=== PATIENT | female | born 1965 | race Caucasian/White ===

== ENCOUNTER 2024-09-07 14:15 | Outpatient (OUT) | payer OTHER, SELFPAY ==
--- NOTE | 2024-09-07 14:20 | ECG_ITS ---
[facility] Test Date: 2024-09-07 Pat Name: EMILY BAILEY Department: Room: - Gender: Female Mast Maker: : 1965 Requested By: Rafita Cano Order Number: [id number] Reading MD: HAYLEY GRAHAM M.D. Measurements Intervals [place] Rate: 76 P: 11 IA: 141 QRS: 3 QRSD: 81 T: 12 QT: 378 QTc: 426 Interpretive Statements SINUS RHYTHM Normal ECG No previous ECG available for comparison Electronically Signed On 09-08-2024 6:32:36 EST by HAYLEY GRAHAM M.D.
--- NOTE | 2024-09-07 14:48 | PM.PRESUREVA ---
History of Present Illness History of Present Illness Chief complaint: Left carpal tunnel syndrome Narrative: Patient presents for presurgical testing. Please see HPI from Dr. Cano dated August 30, 2024. Review of Systems ROS Narrative Please see ROS from Dr. Cano dated August 30, 2024. [facility] Medical History (Updated 09/07/24 @ 14:33 by Mary Villavicencio NP) Neck pain ?M54.2 - Cervicalgia (ICD-10) Back pain ?M54.9 - Dorsalgia, unspecified (ICD-10) Arthritis ?M19.90 - Unspecified osteoarthritis, unspecified site (ICD-10) Low iron ?E61.1 - Iron deficiency (ICD-10) Fatty liver ?K76.0 - Fatty (change of) liver, not elsewhere classified (ICD-10) GERD (gastroesophageal reflux disease) ?K21.9 - Gastro-esophageal reflux disease without esophagitis (ICD-10) Extremity edema ?R60.0 - Localized edema (ICD-10) History of blood transfusion ?Z92.89 - Personal history of other medical treatment (ICD-10) Hypertension ?I10 - Essential (primary) hypertension (ICD-10) Left carpal tunnel syndrome ?G56.02 - Carpal tunnel syndrome, left upper limb (ICD-10) Surgical History (Updated 09/07/24 @ 14:33 by Mary Villavicencio NP) History of colonoscopy ?Z98.890 - Other specified postprocedural states (ICD-10) History of hernia repair ?Z98.890 - Other specified postprocedural states (ICD-10) ?Z87.19 - Personal history of other diseases of the digestive system (ICD-10) History of section ?Z98.891 - History of uterine scar from previous surgery (ICD-10) History of hysterectomy ?Z90.710 - Acquired absence of both cervix and uterus (ICD-10) Family History (Updated 09/07/24 @ 14:33 by Mary Villavicencio NP) Other Family history of aneurysm Family history of breast cancer Family history of cervical cancer Family history of hypertension Family history of myocardial infarction Family history of seizures Family history of stroke Social History (Updated 09/07/24 @ 14:29 by Mary Villavicencio NP) Within the past year, how often did you have a drink containing alcohol: 2-4 times a month Smoking status: Never smoker Non-prescribed substance use: cannabis (any form) Previous occupational history: [employer] Highest level of school completed/degree received: high school graduate Meds Home Medications and Allergies Home Medications ?Medication ?Instructions ?Recorded ?Confirmed ?Type ascorbic acid (vitamin C) 1,000 mg 1 g PO DAILY 09/07/24 09/07/24 History capsule biotin 1 mg capsule 1 mg PO DAILY 09/07/24 09/07/24 History calcium 100 mg capsule 100 mg PO DAILY 09/07/24 09/07/24 History docusate sodium 50 mg capsule 50 mg PO DAILY 09/07/24 09/07/24 History (Stool Softener) lactobacillus combination no.4 3 3,000 mmu cells PO DAILY 09/07/24 09/07/24 History billion cell capsule (Probiotic) lansoprazole 15 mg capsule,delayed 15 mg PO Q12H 09/07/24 09/07/24 History release losartan 50 mg tablet 50 mg PO DAILY 09/07/24 09/07/24 History magnesium 200 mg tablet 200 mg PO DAILY 09/07/24 09/07/24 History multivitamin (Daily Multi-Vitamin 1 tab PO DAILY 09/07/24 09/07/24 History tablet) Allergies Allergy/AdvReac Type Severity Reaction Status Date / Time No Known Drug Allergies Allergy Verified 09/07/24 14:27 Exam Narrative Exam Narrative: Constitutional: Awake, alert, comfortable, well-appearing, nontoxic, interactive, vital signs as charted Head: Normocephalic, atraumatic Neck: Supple, normal appearance, normal range of motion, no meningeal signs, no lymphadenopathy Respiratory: No respiratory distress, breath sounds clear Cardiovascular: Regular rate and rhythm, strong and regular heart tones Skin: No rashes or induration, no lesions, only visible skin inspected Neuro: No neurological deficits, normal sensation Psychiatric: Oriented ?3, normal affect Assessment and Plan Assessment and Plan (1) Left carpal tunnel syndrome: Plan Left endoscopic carpal tunnel release scheduled with Dr. Cano September 26, 2024.
[2024-09-07 15:01] LABS: Basophils Percent Auto 0.5 % (0.2-2.0); Eosinophils Absolute Auto 0.2 10^3/uL (0.0-0.7); Eosinophils Percent Auto 1.8 % (0.9-7.0); Hematocrit 37.4 % (36.0-48.0); Hemoglobin 12.3 g/dL (12.0-16.0); Immature Granulocytes Abs Auto 0.02 10^3/uL (0.00-0.03); Immature Granulocytes Pct Auto 0.2 % (0.0-0.5); Lymphocytes Absolute Auto 3.1 10^3/uL (1.2-3.8); Lymphocytes Percent Auto 38.2 % (20.5-60.0); Mean Corpuscular HGB Conc 32.9 g/dL (29.9-35.2); Mean Corpuscular Hemoglobin 29.6 pg (26.7-34.0); Mean Corpuscular Volume 89.9 fL (81.0-99.0); Monocytes Absolute Auto 0.5 10^3/uL (0.3-0.8); Monocytes Percent Auto 6.5 % (1.7-12.0); Neutrophils Absolute Auto 4.3 10^3/uL (1.4-6.5); Neutrophils Percent Auto 52.8 % (43.0-75.0); Platelet Count 270 10^3/uL (150-450); Red Blood Count 4.16 10^6/uL (4.20-5.40); Red Cell Distribution Width 13.5 % (11.0-15.0); White Blood Count 8.2 10^3/uL (4.0-11.0)
[2024-09-07 15:12] LABS: Anion Gap 11.7; BUN Creatinine Ratio 20.4; Calcium 9.3 mg/dL (8.5-10.1); Carbon Dioxide 27.4 mmol/L (21.0-32.0); Chloride 106 mmol/L (98-107); Estimated GFR (African America >60 (>=60 mL/min/1.73m^2); Estimated GFR (Non-African Ame 58 (>=60 mL/min/1.73m^2); Glucose 94 mg/dL (74-106); Potassium 4.1 mmol/L (3.5-5.1); Sodium 141 mmol/L (136-145)
== END 2024-09-07 14:16 | disposition home or self-care (01) ==
PROVIDERS: PCP Nurse Practitioner Women's Health; Visit Provider Orthopaedic Surgery
DX: Z01.810 Encounter for preprocedural cardiovascular examination (principal); Z01.812 Encounter for preprocedural laboratory examination; Z01.818 Encounter for other preprocedural examination; G56.02 Carpal tunnel syndrome, left upper limb
CPT/HCPCS: 80048; 85025; 93005; G0463

== ENCOUNTER 2024-10-03 12:23 | Day surgery (SDC) | payer OTHER, SELFPAY ==
[2024-09-07 14:42] VITALS: BP 136/91; PULSE 78; TEMP 36.2; O2SAT 96; BMI 40.2
[2024-10-03 12:25] VITALS: BP 153/82; PULSE 74; TEMP 36.4; O2SAT 97; BMI 39.0
--- OUTSIDE RECORDS SUMMARY | 2024-10-03 12:48 | XMS_ITS | CCD ---
Author Organization [facility] ion Partnership [facility] Care Team Providers Care Perforator Operator Oil Well Name Role Phone Guy Lorenzana Primary Care Provider [phone] KEVIN ARITA Admitting Unavailable KEVIN ARITA Attending Unavailable GUY LORENZANA Primary Care Unavailable SUZETTE MOSELEY V Consulting Unavailable KEVIN ARITA Consulting Unavailable Guy Lorenzana Primary Care Provider Anamika BARNES, Guy Salazar Primary Care Provider Anamika BARNES, Guy Salazar Primary Care Provider Anamika BARNES, Guy Salazar Primary Care Provider Brii Mendoza MD Unavailable Unallocated , Noms Provider Primary Care Provi madison CRISTINO LABOY Attending Unavailable BRII MENDOZA Referring Unavailable Reji MANAGER INSTRUMENTATION - MULTIPLE EFFECT EVAPORATOR OPERATORBiri Primary Care Provide r BRII MENDOZA Referring Unavailable BRII MENDOZA Primary Care Unavailable BRII MENDOZA Primary Care Unavailable BRII MENDOZA M Referring Unavailable BRII MENDOZA Primary Care Unavailable BRII MENDOZA Referring Unavailable BRII MENDOZA Primary Care Unavailable LINH HERNADEZ Referring Unavailable BRII MENDOZA Referring Unavailable BRII MENDOZA M Primary Care Unavailable BRII MENDOZA M Referring Unavailable BRII MENDOZA M Primary Care Unavailable BRII MENDOZA M Primary Care Unavailable Mendoza MANAGER INSTRUMENTATION - MULTIPLE EFFECT EVAPORATOR OPERATORBrii Primary Care Provide r Medications Current Medications Medication Drug Class(es) Dates Sig (Normalized) Sig (Original) acetaminophen 325 mg oral tablet (5 sources) Start: 12-14-2019 End: 12-14-2019 take 650 mg by mouth every four hours as needed for pain, then take 4000 mg by mouth every twenty-four hours as needed for pain 650 mg, Oral, EVERY 4 HOURS PRN, Pain Mild (1-3), Fever, Fever >100.5 F (38 C), Starting 12/14/19 at 1235 Maximum dose of acetaminophen is 4000 mg from all sources in 24 hours. Post-op take 2 tablets by mo uth every six hours as needed acetaminophen (TYLENOL) 500 MG tablet Ta ke 500 mg by mouth every 6 hours as needed for Pain Taking 2 0 Active acetaminophen 325 mg / oxyCODONE hydrochloride 5 mg oral tablet (2 sources) Opioid Agonist Start: 12-16-2019 End: 12-23-2019 take 1 tablet by mouth every four hours as needed for pain oxyCODONE-acetaminophen (PERCOCET) 5-325 MG per tablet Indications: S/P SHUN (total abdominal hysterectomy) Take 1 tablet by mouth every 4 hours as needed for Pain (postop) for up to 7 days. 28 tablet 0 12/16/2019 12/23/2019 Active Start: 12-14-2019 oxyCODONE-acet aminophen (PERCOCET) 5-325 MG per tablet 1 tablet [id number] 200 actuat albuterol 0.09 mg/actuat metered dose inhaler (1 source) beta2-Adrenergic Agonist Start: 10-31-2021 take 2 puff(s) by inhalation four times daily as needed for wheezing albuterol sulfate HFA (VENTOLIN HFA) 108 (90 Base) MCG/ACT inhaler Indications: Bronchitis Inhale 2 puffs into the lungs 4 times daily as needed for Wheezing 18 g 0 10/31/2021 Active benzocaine 15 mg / menthol 3.6 mg oral lozenge (1 source) Standardized Chemical Allergen Start: 12-15-2019 benzocaine-menthol (CEPACOL SORE THROAT) lozenge 1 lozenge benzonatate 100 mg oral capsule (1 source) Non-narcotic Antitussive Start: 07-22-2021 End: 07-29-2021 take 1 capsule by mouth three times daily as needed for cough benzonatate (TESSALON) 100 MG capsule Indications: Post-COVID chronic cough Take 1 capsule by mouth 3 times daily as needed for Cough 21 capsule 0 07/22/2021 07/29/2021 Active Biotin (1 source) BIOTIN PO Take b y mouth Active 24 hr buPROPion hydrochloride 150 mg extended release oral tablet (1 source) Aminoketone Start: 04-09-2022 take 1 tablet by mouth once daily in the morning buPROPion (WELLBUTRIN XL) 150 MG extended release tablet Take 1 tablet by mouth every morning 30 tablet 0 04/09/2022 Active cyclobenzaprine hydrochloride 10 mg oral tablet (3 sources) Muscle Relaxant take 1 tablet by mouth three times daily as needed for muscle spasms cyclobenzaprine (FLEXERIL) 10 MG tablet Take 10 mg by mouth 3 times daily as needed for Muscle spasms 0 Active Docusate (1 source) Docusate Calcium (STOOL SOFTENER PO) Take by mouth Active 0.4 ml enoxaparin sodium 100 mg/ml prefilled syringe (1 source) Low Molecular Weight Heparin Start: 12-15-2019 inject 40 mg by subcutaneous injection once daily 40 mg, Subcutaneous, DAILY, First dose on Noemi 12/15/19 at 0800 Pharmacy to dose if renal insufficiency present. Post-op escitalopram 10 mg oral tablet (1 source) Serotonin Reuptake Inhibitor Start: 03-18-2022 take 1 tablet by mouth once daily escitalopram (LEXAPRO) 10 MG tablet Take 1 tablet by mouth daily 30 tablet 1 03/18/2022 Active estradiol 1 mg oral tablet (7 sources) Estrogen Start: 07-30-2020 take 1 tablet by mouth once daily estradiol (ESTRACE) 1 MG tablet Indications: Mood swing Take 1 tablet by mouth daily 21 tablet 3 07/30/2020 Active ibuprofen 200 mg oral tablet (8 sources) Nonsteroidal Anti-inflammatory Drug take 1 tablet by mouth every six hours as needed for pain ibuprofen (ADVIL;MOTRIN) 200 MG tablet Take 200 mg by mouth every 6 hours as needed for Pain 0 Active lansoprazole 15 mg delayed release oral capsule (20 sources) Proton Pump Inhibitor Start: 02-01-2020 take 1 capsule by mouth once daily lansoprazole (PREVACID) 15 MG delayed release capsule Take 1 capsule by mouth daily 90 capsule 3 02/01/2020 Active Start: 01-22-2016 take 1 capsule by mo [facility] once daily lansoprazole (PREVACID) 15 MG capsule Take 1 capsule by mouth daily 30 capsule 3 01/22/2016 Suspended lisinopril 10 mg oral tablet (20 sources) Angiotensin Converting Enzyme Inhibitor Start: 03-18-2022 take 1 tablet by mouth once daily lisinopril (PRINIVIL;ZESTRIL) 10 MG tablet Take 1 tablet by mouth daily 90 tablet 1 03/18/2022 Active Start: 09-25-2020 take 1 tablet by alejandro once daily lisinopril (PRINIVIL;ZESTRIL) 10 MG tablet Take 1 tablet by mouth daily 90 tablet 3 09/25/2020 Active Start: 02-01-2020 take 1 tablet by alejandro once daily lisinopril (PRINIVIL;ZESTRIL) 10 MG tablet Take 1 tablet by mouth daily 90 tablet 3 02/01/2020 Active Start: 09-02-2019 take 10 mg by mouth once daily 10 mg, Oral, DAILY, First dose on Thu12/14/19 at 1300 Start: 08-10-2018 take 1 tablet by alejandro once daily lisinopril (PRINIVIL;ZESTRIL) 10 MG tablet Indications: Essential hypertension Take 1 tablet by mouth daily 90 tablet 3 08/10/2018 Active losartan potassium 50 mg oral tablet (3 sources) Angiotensin 2 Receptor Abdulkadir Start: 02-09-2024 take 1 tablet by mouth once daily losartan (COZAAR) 50 MG tablet Take 1 tablet by mouth daily 90 tablet 3 02/09/2024 Active Magnesium (1 source) MAGNESIUM PO Michael e by mouth Active meloxicam 15 mg oral tablet (1 source) Nonsteroidal Anti-inflammatory Drug Start: 04-05-2024 take 1 tablet by mouth once daily as needed for pain meloxicam (MOBIC) 15 MG tablet Take 1 tablet by mouth daily as needed for Pain . Take with food. 30 tablet 1 04/05/2024 Active Multiple Vitamin (MULTIVITAMIN ADULT PO) (1 source) Multiple Vitamin (MULTIVITAMIN ADULT PO) Take by mouth Active [place]-3 Fatty Acids (FISH OIL PO) (1 source) [place]-3 Fatty Acids (FISH OIL PO) Take by mouth Active 2 ml ondansetron 2 mg/ml injection (1 source) Serotonin-3 Receptor Antagonist Start: 12-14-2019 4 mg, Intravenous, EVERY 8 HOURS PRN, Nausea, Vomiting, Starting Thu12/14/19 at 1235 If uncontrolled after 2 doses, notify physician. Post-op pantoprazole 20 mg delayed release oral tablet (1 source) Proton Pump Inhibitor Start: 12-15-2019 take 20 mg by mouth once daily before breakfast 20 mg, Oral, DAILY BEFORE BREAKFAST, First dose on Thu12/15/19 at 0700 Do not crush or break. Substituted for Lansoprazole (PREVACID). Probiotic Product (PROBIOTIC PO) (1 source) Probiotic Produc t (PROBIOTIC PO) Take by mouth Active Turmeric extract (6 sources) TURMERIC PO Take by mouth daily 0 Active VITAMIN D PO (1 source) VITAMIN D PO Michael e by mouth Active Completed/Discontinued Medications Medication Drug Class(es) Dates Sig (Normalized) Sig (Original) calcium chloride 0.0014 meq/ml / potassium chloride 0.004 meq/ml / sodium chloride 0.103 meq/ml / sodium lactate 0.028 meq/ml injectable solution (2 sources) Start: 12-14-2019 End: 12-15-2019 Intravenous, at 125 mL/hr, CONTINUOUS, Starting Thu12/14/19 at 1300, Post-op Start: 12-14-2019 End: 12-14-2019 lactated ringers infusion ceFAZolin (ANCEF) 2 g in dextrose 5 % 100 mL IVPB (2 sources) Start: 12-14-2019 End: 12-15-2019 2 g, Intravenous, EVERY 8 HO URS, 2 doses, First dose on Thu12/14/19 at 1600, Last dose on Thu12/15/19 at 0000, Post-op Start: 12-14-2019 End: 12-14-2019 ceFAZolin (ANCEF) 2 g in dex trose 5 % 100 mL IVPB dimenhyDRINATE 50 mg oral tablet (1 source) Start: 12-14-2019 End: 12-14-2019 dimenhyDRINATE (DRAMAMINE) tablet 50 mg gabapentin 300 mg oral capsule (1 source) Anti-epilepti c Agent Start: 12-14-2019 End: 12-14-2019 gabapentin (NEURONTIN) capsule 600 mg 30 ml morphine sulfate 1 mg/ml injection (1 source) Opioid Agonist Start: 12-14-2019 End: 12-15-2019 take 4-7.5 mg intravenous route every hour Intravenous, CONTINUOUS, Starting Thu12/14/19 at 1215 LOADING DOSE: 3m g (Optional-Prior to GRAPHIC USER INTERFACE DESIGNER, Standard 2-4mg) BASAL DOSE: 0mg/hr (Standard 0-2mg/hr) GRAPHIC USER INTERFACE DESIGNER DOSE: 1mg (Standard 0.5-1.5mg) LOC KOUT: 10min (Standard 10 min) 1 hour dose limit: 6mg (Standard 4-7.5mg) 50 ml sodium chloride 9 mg/ml injection (3 sources) Start: 12-16-2019 End: 12-16-2019 0.9 % sodium chloride bolus Start: 12-14-2019 10 mL, Intrave nous, EVERY 12 HOURS SCHEDULED (2 times per day), First dose on Thu12/14/19 at 2100, Post-op Start: 12-14-2019 take 10 mL intravenous route o nce 10 mL, Intravenous, PRN, Line Care, Starting Thu12/14/19 at 1235 After every IV line use Post-op Problems Active Problems Problem Classification Problem Date Documented Da te Episodic/Chronic Essential hypertension (20 sources) Essential hypertension; Translations: [Essential (primary) hypertension] Onset: 03-06-2015 03-06-2015 Chronic External cause codes: Struck by; against (1 source) Other cause of strike by thrown, projected or falling object, initial encounter; Translations: [OTH CAUSE STRIK THRWN/FALL OBJ INIT] Onset: 05-18-2019 Osteoarthritis (3 sources) Osteoarthritis; Translations: [Unspecified osteoarthritis, unspecified site] Onset: 07-06-2007 02-09-2024 Chronic Other connective tissue disease (1 source) Pain in lower limb; Translations: [Acute pain of right lower extremity] Episodic Other gastrointestinal disorders (2 sources) Disorder of abdomen; Translations: [Abdominal adhesions] 12-14-2019 Episodic Other injuries and conditions due to external causes (3 sources) Unspecified injury of head, initial encounter; Translations: [UNSPECIFIED INJURY HEAD INITIAL ENC] Onset: 05-16-2019 Other injuries and conditions due to external causes (1 source) Other specified injuries of head, initial encounter; Translations: [OTH SPEC INJURIES HEAD INITIAL ENC] Onset: 05-18-2019 Other liver diseases (2 sources) Steatosis of liver; Translations: [Fatty (change of) liver, not elsewhere classified] Onset: 02-29-2024 02-29-2024 Chronic Other nervous system disorders (2 sources) Carpal tunnel syndrome of left wrist; Translations: [Carpal tunnel syndrome, left upper limb] 06-27-2024 Chronic Other nervous system disorders (2 sources) Numbness and tingling sensation of skin; Translations: [Anesthesia of skin] 06-27-2024 Episodic Other non-traumatic joint disorders (2 sources) Scapulalgia; Translations: [Shoulder blade pain] Episodic Other nutritional; endocrine; and metabolic disorders (1 source) Obesity; Translations: [Class 2 obesity with body mass index (BMI) of 38.0 to 38.9 in adult] Onset: 05-23-2024 05-23-2024 Chronic Other nutritional; endocrine; and metabolic disorders (1 source) Weight gain; Translations: [Weight gain] Episodic Superficial injury; contusion (1 source) Contusion of other part of head, initial encounter; Translations: [CONTUS OTH PRT HEAD INITIAL ENCNTR] Onset: 05-18-2019 Episodic Past or Other Problems Problem Classification Problem Date Documented Date Episodic/Chronic Abdominal pain (3 sources) Right upper quadrant pain; Translations: [Epigastric rebound abdominal tenderness] Onset: 02-09-2024 Episodic Cancer of cervix (12 sources) Cervical intraepithelial neoplasia grade III with severe dysplasia; Translations: [Carcinoma in situ of cervix, unspecified] Resolved: 01-29-2021 12-14-2019 Episodic Deficiency and other anemia (7 sources) Anemia; Translations: [Severe anemia] Onset: 12-16-2019 12-16-2019 Episodic Diabetes mellitus without complication (3 sources) Prediabetes; Translations: [Prediabetes] Onset: 02-10-2024 02-10-2024 Episodic Other connective tissue disease (3 sources) Triggering of digit; Translations: [Trigger finger, left middle finger] Onset: 02-18-2023 02-18-2023 Episodic Other female genital disorders (1 source) Cervical atypism Episodic Other nervous system disorders (3 sources) Anesthesia of skin; Translations: [Anesthesia of skin] Onset: 02-09-2024 Episodic Other nervous system disorders (1 source) Numbness of hand; Translations: [Anesthesia of skin] 02-09-2024 Episodic Other screening for suspected conditions (not mental disorders or infectious disease) (11 sources) Patient encounter status; Translations: [Encounter for screening for malignant neoplasm of colon] Onset: 01-22-2017 Resolved: 10-15-2017 10-15-2017 Episodic Residual codes; unclassified (20 sources) Feeling nervous; Translations: [Nervousness] Onset: 03-06-2015 Resolved: 08-02-2018 08-02-2018 Episodic Residual codes; unclassified (7 sources) History of total hysterectomy; Translations: [S/P SHUN (total abdominal hysterectomy)] Onset: 12-14-2019 12-14-2019 Episodic Residual codes; unclassified (1 source) Family history of other endocrine, nutritional and metabolic diseases; Translations: [Family history of other endocrine, nutritional and metabolic diseases] Onset: 02-09-2024 Episodic Spondylosis; intervertebral disc disorders; other back problems (20 sources) Low back pain; Translations: [Bilateral low back pain without sciatica] Onset: 03-06-2015 Resolved: 08-02-2018 08-02-2018 Episodic Unclassified (20 sources) Patient encounter status; Translations: [Colon cancer screening] Onset: 01-22-2017 Resolved: 10-15-2017 10-15-2017 Viral infection (20 sources) Herpes zoster without complication; Translations: [Zoster without complications] Onset: 07-11-2015 Resolved: 08-02-2018 08-02-2018 Episodic Results Test Name Value Interpretation Reference Range Facility Cytology Reporton 07-13-2024 Cytology report Cyto stain.thin prep Doc (Cvx/Vag) (NOTE) Path Number: [id number] DIAGNOSIS Imaged ThinPrep Pap - Vaginal (1 monolayer slide): Specimen Adequacy: Satisfactory for evaluation. Descriptive Diagnosis: Negative for intraepithelial lesion or malignancy. Cytotech Screener: EY Electronically Signed Out Arnold CAMPUZANO(ASCP) ey/07/22/2024 Source of Specimen: A: Imaged ThinPrep Pap - Vaginal (1 monolayer slide) HPV Reflex?............. .........HPV if ASCUS Clinical History Total hysterectomy: 12/14/2019 Z01.419 Routine mechanical unit repairer exam without abnormal findings LMP: 11/16/2019 Processing Lab: [address] [place] [address] Interpretation performed at [address] [id number] This Pap Test has been evaluated with the assistance of the EndoSpherePrep Pap Test Imaging System. The Pap smear is a screening test primarily for squamous epithelial lesions, which is subject to both false negative and false positive results. Your patient should be reminded to consult you immediately if she experiences any suspicious signs or symptoms, regardless of her Pap smear result. GYNECOLOGIC CYTOLOGY REPORT Patient Name: EMILY PEREZ [facility] Rec: [id number] [facility] [place] [facility] ANATOMIC PATHOLOGY [address] [facility]. [place], [place] [address] Normal [facility] EMG 1 Extremeityon 4 EMG/NCS LUE Moderate sensory only = mild [facility] N[facility] 7-8 Nerveson 06-27-2024 EMG/NCS LUE Moderate sensory only = mild left CTS [facility] DBT Breast - bilateral scree ningon 03-24-2024 No evidence of malignancy. Advise annual screening mammography. Breast tissue can be either dense or not dense. Dense tissue makes it harder to find breast cancer on a mammogram and also raises the risk of developing breast cancer. Your breast tissue is NOT DENSE. Talk to your health care provider about breast density, risk for breast cancer and your individual situation. BI-RADS 1 BIRADS: BIRADS - CATEGORY 1 Negative, no evidence of malignancy. Normal interval follow-up is recommended in 12 months. OVERALL ASSESSMENT - NEGATIVE A letter of notification will be sent to the patient regarding the results. [employer] recommends annual mammograms for women 40 years and older. Performing Facility: [place] [address] [facility] RIS CONSOLIDATED EXAMINATION: SCREENING DIGITAL BILATERAL MAMMOGRAM WITH TOMOSYNTHESIS, 03/23/2024 TECHNIQUE: Screening mammography was performed with tomosynthesis including MLO and CC views of the bilateral breasts. Computer aided detection was used for the interpretation of this exam. COMPARISON: 14 April 2022; 22 August 2019 HISTORY: Screening. Positive family history of breast cancer; paternal aunt at 72 paternal grandmother age 75. No hormonal replacement therapy or breast interventions. TC score 10.61 FINDINGS: Both breasts are composed of predominantly fatty tissue. No skin thickening, nipple contour changes, suspicious calcifications, suspicious masses, areas of architectural distortion or significant interval changes are noted. PN RIS CONSOLIDATED DBT Breast - bilateral scree ningOrdered By: Brianna Ace on 03-24-2024 [facility] Work Phone: [facility] ZULE[facility] DIGITAL SCREEN BILA JOHNYALoapril 03-24-2024 [facility] DIGITAL SCREEN BILATERAL EXAMINATION: SCREENING DIGITAL BILATERAL MAMMOGRAM WITH TOMOSYNTHESIS, 03/23/2024 TECHNIQUE: Screening mammography was performed with tomosynthesis including MLO and CC views of the bilateral breasts. Computer aided detection was used for the interpretation of this exam. COMPARISON: 14 April 2022; 22 August 2019 HISTORY: Screening. Positive family history of breast cancer; paternal aunt at 72 paternal grandmother age 75. No hormonal replacement therapy or breast interventions. TC score 10.61 FINDINGS: Both breasts are composed of predominantly fatty tissue. No skin thickening, nipple contour changes, suspicious calcifications, suspicious masses, areas of architectural distortion or significant interval changes are noted. IMPRESSION: No evidence of malignancy. Advise annual screening mammography. Breast tissue can be either dense or not dense. Dense tissue makes it harder to find breast cancer on a mammogram and also raises the risk of developing breast cancer. Your breast tissue is NOT DENSE. Talk to your health care provider about breast density, risk for breast cancer and your individual situation. BI-RADS 1 BIRADS: BIRADS - CATEGORY 1 Negative, no evidence of malignancy. Normal interval follow-up is recommended in 12 months. OVERALL ASSESSMENT - NEGATIVE A letter of notification will be sent to the patient regarding the results. The [employer] recommends annual mammograms for women 40 years and older. Performing Facility: [place] [address] Interpreted by: Brianna Ace MD Signed by: Brianna Ace MD 03/24/24 Final result Normal [facility] DBT Breast - bilateral scree tiagon 03-23-2024 Radiology Study observation (narrative) [facility] US GALLBLADDER RUQon 024 US GALLBLADDER RUQ EXAMINATION: RIGHT UPPER QUADRANT ULTRASOUND 02/29/2024 3:46 pm COMPARISON: None. HISTORY: ORDERING SYSTEM PROVIDED HISTORY: RUQ pain TECHNOLOGIST PROVIDED HISTORY: FINDINGS: LIVER: Hepatic steatosis. No focal lesion. Liver 17.6 cm in length. BILIARY SYSTEM: Gallbladder is unremarkable without evidence of pericholecystic fluid, wall thickening or stones. Negative sonographic Aguirre's sign. Common bile duct is within normal limits measuring 5.1 mm. RIGHT KIDNEY: The right kidney is grossly unremarkable without evidence of hydronephrosis. PANCREAS: Visualized portions of the pancreas are unremarkable. OTHER: No evidence of right upper quadrant ascites. IMPRESSION: Hepatic steatosis Interpreted by: Matt Peterson DO Signed by: Matt Peterson DO 02/29/24 Final result Normal [facility] XR CERVICAL SPINE (2-3 VIEWS )on 02-13-2024 XR CERVICAL SPINE (2-3 VIEWS) EXAMINATION: 4 XRAY VIEWS OF THE CERVICAL SPINE 02/09/2024 3:12 pm COMPARISON: None. HISTORY: ORDERING SYSTEM PROVIDED HISTORY: Neck pain FINDINGS: 1 mm anterolisthesis C3 on C4, 2 mm anterolisthesis C4 on C5 and 1 mm retrolisthesis C5 on C6. May no acute osseous abnormality. The odontoid is intact as visualized. Advanced degenerative change most significant C5-6 with loss of disc height and endplate spondylosis. Prevertebral soft tissues are unremarkable. IMPRESSION: No acute findings. Multilevel degenerative change. Interpreted by: Matt Peterson DO Signed by: Matt Peterson DO 02/13/24 Final result Normal [facility] Lipid Profileon 02-10-2024 Cholesterol [Mass/Vol] 172 mg/dL Normal 0-199 [facility] Comment on above: Result Comment: Cholesterol Guidelines: <200 Desirable 200-240 Borderline >240 Undesirable Performed By: #### L IPR #### [facility] [address] [place], [place] [id number] Card Puncher: Aaron Moore MD Cholesterol in HDL [Mass/Vol] 55 mg/dL Normal >40 [facility] Comment on above: Result Comment: HDL Guidelines: <40 Undesirable 40-59 Borderline >59 Desirable Performed By: #### L IPR #### [facility] [address] [place] [address] Card Puncher: Aaron Moore MD Cholesterol in LDL [Mass/Vol] 89 mg/dL Normal 0-100 [facility] Comment on above: Result Comment: LDL Guidelines: <100 Desirable 100-129 Near to/above Desirable 130-159 Borderline >159 Undesirable Direct (measured) LDL and calculated LDL are not interchangeable tests. Performed By: #### L IPR #### [address] [address] Card Puncher: Aaron Moore MD Cholesterol in VLDL [Mass/Vol] 28 mg/dL Normal [facility] Comment on above: Performed By: #### L IPR #### [address] [address] Card Puncher: Aaron Moore MD Cholesterol.total/Cho lesterol in HDL [Mass ratio] 3.0 {ratio} Normal [facility] Comment on above: Performed By: #### L IPR #### [address] [address] Card Puncher: Aaron Moore MD Triglyceride [Mass/Vol] 139 mg/dL Normal <150 [facility] Comment on above: Result Comment: Triglyceride Guidelines: <150 Desirable 150-199 Borderline 200-499 High >499 Very high Based on AHA Guidelines for fasting triglyceride, April 2012. Performed By: #### L IPR #### [address] [address] Card Puncher: Aaron Moore MD Vitamin D 25 OHon 02-10-2024 Vitamin D 25 [place] 40.2 ng/mL Normal 30.0-100.0 [facility] Comment on above: Result Comment: Reference Range: Vitamin D status Range Deficiency <20 ng/mL Mild Deficiency 20-30 ng/mL Sufficiency 30-100 ng/mL Toxicity >100 ng/mL Performed By: #### L IP, ALT, CBC, BMP, AST ####[facility] [place] [address] Lab Director: Suzette Pitt MD#### VD25, GLYHGB ####[facility] [place], [place] [id number] Lab Director: MD Letty Bolanos 02-09-2024 ALT [Catalytic activity/Vol] 19 U/L Normal 5-33 [facility] Comment on above: Performed By: #### L IP, ALT, CBC, BMP, AST #### [address] [place], [place] [id number] Card Puncher: Suzette Pitt MD #### VD25, GLYHGB #### [place] [id number] [place], [place] [id number] Card Puncher: Aaron Moore MD Lalitha 1 AST [Catalytic activity/Vol] 22 U/L Normal <32 [facility] Comment on above: Performed By: #### L IP, ALT, CBC, BMP, AST #### [address] [place] [address] Card Puncher: Suzette Pitt MD #### VD25, GLYHGB #### [address] [id number] Card Puncher: Aaron Moore MD Basic Metabolic Profon 02-08 Anion gap [Moles/Vol] 9 mmol/L Normal 9-17 [facility] Comment on above: Performed By: #### L IP, ALT, CBC, BMP, AST #### [address] [place] [address] Card Puncher: Suzette Pitt MD #### VD25, GLYHGB #### [address] [id number] Card Puncher: Aaron Moore MD BUN/CRE Ratio 30 High 9-20 [facility] Comment on above: Performed By: #### L IP, ALT, CBC, BMP, AST #### [facility] [address] [place] [address] [place] [address] Card Puncher: Suzette Pitt MD #### VD25, GLYHGB #### [address] [id number] Card Puncher: Aaron Moore MD Calcium [Mass/Vol] 9.9 mg/dL Normal 8.6-10.4 [facility] Comment on above: Performed By: #### L IP, ALT, CBC, BMP, AST #### [facility] [address] [place] [address] Card Puncher: Suzette Pitt MD #### VD25, GLYHGB #### [address] [id number] Card Puncher: Aaron Moore MD Chloride [Moles/Vol] 102 mmol/L Normal 98-107 [facility] Comment on above: Performed By: #### L IP, ALT, CBC, BMP, AST #### [address] [place] [address] Card Puncher: Suzette Pitt MD #### VD25, GLYHGB #### [address] [id number] Card Puncher: Aaron Moore MD CO2 [Moles/Vol] 27 mmol/L Normal 20-31 [facility] Comment on above: Performed By: #### L IP, ALT, CBC, BMP, AST #### [facility] [address] [place] [address] Card Puncher: Suzette Pitt MD #### VD25, GLYHGB #### [address] [id number] Card Puncher: Aaron Moore MD Creatinine [Mass/Vol] 0.8 mg/dL Normal 0.5-0.9 [facility] Comment on above: Performed By: #### L IP, ALT, CBC, BMP, AST #### [facility] [address] [place], [place] [phone] Card Puncher: Suzette Pitt MD #### VD25, GLYHGB #### [place] [address] [place], [place] [id number] Card Puncher: Aaron Moore MD GFR/1.73 sq M.predicted among non-blacks MDRD (S/P/Bld) [Vol rate/Area] 86 mL/min/{1.73_m2} Normal >60 [facility] Comment on above: Result Comment: These results are not intended for use in patients <18 years of age. eGFR results are calculated without a race factor using the 2020 CKD-EPI equation. Careful clinical correlation is recommended, particularly when comparing to results calculated using previous equations. The CKD-EPI equation is less accurate in patients with extremes of muscle mass, extra-renal metabolism of creatine, excessive creatine ingestion, or following therapy that affects renal tubular secretion. Performed By: #### L IP, ALT, CBC, BMP, AST #### [facility] [address] [place] [address] [place] [phone] Card Puncher: Suzette Pitt MD #### VD25, GLYHGB #### [address] [id number] Card Puncher: Aaron Moore MD Glucose [Mass/Vol] 92 mg/dL Normal 70-99 [facility] Comment on above: Performed By: #### L IP, ALT, CBC, BMP, AST #### [facility] [address] [place] [address] [place] [address] Card Puncher: Suzette Pitt MD #### VD25, GLYHGB #### [address] [id number] Card Puncher: Aaron Moore MD Potassium [Moles/Vol] 4.1 mmol/L Normal 3.7-5.3 [facility] Comment on above: Performed By: #### L IP, ALT, CBC, BMP, AST #### [facility] [address] [place] [address] Card Puncher: Suzette Pitt MD #### VD25, GLYHGB #### [address] [place], [place] [id number] Card Puncher: Aaron Moore MD Sodium [Moles/Vol] 138 mmol/L Normal 135-144 [facility] Comment on above: Performed By: #### L IP, ALT, CBC, BMP, AST #### [facility] [address] [place] [address] Card Puncher: Suzette Pitt MD #### VD25, GLYHGB #### [address] [place], [place] [id number] Card Puncher: Aaron Moore MD Urea nitrogen [Mass/Vol] 24 mg/dL High 6-20 [facility] Comment on above: Performed By: #### L IP, ALT, CBC, BMP, AST #### [facility] [address] [place] [address] Card Puncher: Suzette Pitt MD #### VD25, GLYHGB #### [address] [id number] Card Puncher: Aaron Moore MD CBCon 02-09-2024 Erythrocyte distribution width (RBC) [Ratio] 13.3 % Normal 11.8-14.4 [facility] Comment on above: Performed By: #### L IP, ALT, CBC, BMP, AST #### [facility] [address] [place] [address] Card Puncher: Suzette Pitt MD #### VD25, GLYHGB #### [address] [place], [place] [id number] Card Puncher: Aaron Moore MD Hematocrit (Bld) [Volume fraction] 41.1 % Normal 36.3-47.1 [facility] Comment on above: Performed By: #### L IP, ALT, CBC, BMP, AST #### [address] [place] [id number] Card Puncher: Suzette Pitt MD #### VD25, GLYHGB #### [address] [id number] Card Puncher: Aaron Moore MD Hemoglobin (Bld) [Mass/Vol] 13.7 g/dL Normal 11.9-15.1 [facility] Comment on above: Performed By: #### L IP, ALT, CBC, BMP, AST #### [address] [place] [id number] Card Puncher: Suzette Pitt MD #### VD25, GLYHGB #### [place] [address] Card Puncher: Aaron Moore MD MCH (RBC) [Entitic mass] 29.3 pg Normal 25.2-33.5 [facility] Comment on above: Performed By: #### L IP, ALT, CBC, BMP, AST #### [address] [place] [id number] Card Puncher: Suzette Pitt MD #### VD25, GLYHGB #### [address] [id number] Card Puncher: Aaron Moore MD MCHC (RBC) [Mass/Vol] 33.3 g/dL Normal 28.4-34.8 [facility] Comment on above: Performed By: #### L IP, ALT, CBC, BMP, AST #### [address] [place] [address] Card Puncher: Suzette Pitt MD #### VD25, GLYHGB #### [address] [id number] Card Puncher: Aaron Moore MD MCV (RBC) [Entitic vol] 88.0 fL Normal 82.6-102.9 [facility] Comment on above: Performed By: #### L IP, ALT, CBC, BMP, AST #### [address] [place], [place] [id number] Card Puncher: Suzette Pitt MD #### VD25, GLYHGB #### [address] [id number] Card Puncher: Aaron Moore MD NRBC Automated 0.0 per 100 WBC Normal 0.0 [facility] Comment on above: Performed By: #### L IP, ALT, CBC, BMP, AST #### [address] [place] [id number] Card Puncher: Suzette Pitt MD #### VD25, GLYHGB #### [place] [address] Card Puncher: Aaron Moore MD Platelet mean volume (Bld) [Entitic vol] 10.5 fL Normal 8.1-13.5 [facility] Comment on above: Performed By: #### L IP, ALT, CBC, BMP, AST #### [address] [place] [phone] Card Puncher: Suzette Pitt MD #### VD25, GLYHGB #### [address] [phone] Card Puncher: Aaron Moore MD Platelets (Bld) [#/Vol] 261 10*3/uL Normal 138-453 [facility] Comment on above: Performed By: #### L IP, ALT, CBC, BMP, AST #### [address] [place] [id number] Card Puncher: Suzette Pitt MD #### VD25, GLYHGB #### [facility] [address] [place] [address] Card Puncher: Aaron Moore MD RBC (Bld) [#/Vol] 4.67 10*6/uL Normal 3.95-5.11 [facility] Comment on above: Performed By: #### L IP, ALT, CBC, BMP, AST #### [facility] [address] [place] [address] Dr. [place], [place] [phone] Card Puncher: Suzette Pitt MD #### VD25, GLYHGB #### [address] [place] [address] Card Puncher: Aaron Moore MD WBC (Bld) [#/Vol] 8.0 10*3/uL Normal 3.5-11.3 [facility] Comment on above: Performed By: #### L IP, ALT, CBC, BMP, AST #### [address] [place] [id number] Card Puncher: Suzette Pitt MD #### VD25, GLYHGB #### [address] [place] [address] Card Puncher: Aaron Moore MD Hemoglobin A1Con 02-09-2024 Glucose [Mass/Vol] 117 mg/dL Normal [facility] Comment on above: Result Comment: The ADA and AACC recommend providing the estimated average glucose result to permit better patient understanding of their HBA1c result. Performed By: #### L IP, ALT, CBC, BMP, AST ####[address] [place], [place] 9[address]83 Lab Director: Suzette Pitt MD#### VD25, GLYHGB ####[place] [address] [place] [address] Lab Director: Aaron Moore MD HbA1c (Bld) [Mass fraction] 5.7 % Normal 4.0-6.0 [facility] Comment on above: Performed By: #### L IP, ALT, CBC, BMP, AST ####[facility] , [place] 5010083 [facility] Director: Suzette Pitt MD#### VD25, GLYHGB ####[place] [address] [place], [place] 7470708 Lab Director: Aaron Moore MD Lipaseon 02-09-2024 Lipase [Catalytic activity/Vol] 45 U/L Normal 13-60 [facility] Comment on above: Performed By: #### L IP, ALT, CBC, BMP, AST ####[address] [place], [place] 2128483 Lab Director: Suzette Pitt MD#### VD25, GLYHGB ####[address] [id number] lab Director: Aaron Moore MD TSH w/reflex to FT4on 2023 Thyroid Stim. Horm. 0.79 uIU/mL Normal 0.30-5.00 [facility] Comment on above: Performed By: #### T SHX #### [address] [place], [place] [phone] Card Puncher: Suzette Pitt MD UA w/Reflex Cultureon 2023 Bilirubin, SemiQt,Ur Negative Normal NEG [facility] Comment on above: Performed By: #### U OSMAR UAX ####[address] , [place] 9146583 [facility] Director: Suzette Pitt MD Blood, Urine Negative Normal NEG [facility] Comment on above: Performed By: #### U OSMAR, UAX ####[address] , [place] [phone] [facility] Director: Suzette Pitt MD Clarity (U) Clear Normal CLEAR [facility] Comment on above: Performed By: #### U OSMAR UAX ####[address] [place] [address] Lab Director: Suzette Pitt MD Color (U) Yellow Normal YEL [facility] Comment on above: Performed By: #### U MICAO, UAX ####[address] , [place] 9123083 Lab Director: Suzette Pitt MD Glucose Ql (U) Negative Normal NEG [facility] Comment on above: Performed By: #### U MICAO, UAX ####[address] [place] [address] Lab Director: Suzette Pitt MD Ketones Ql (U) Negative Normal NEG [facility] Comment on above: Performed By: #### U MICAO, UAX ####[address] [place] [address] Lab Director: Suzette Pitt MD Leukocyte esterase Test strip Ql (U) Negative Normal NEG [facility] Comment on above: Performed By: #### U MICAO, UAX ####[address] [place] [address] Lab Director: Suzette Pitt MD Nitrite,Ur Negative Normal NEG [facility] Comment on above: Performed By: #### U MICAO, UAX ####[address] [place] [address] Lab Director: Suzette Pitt MD PH,Ur 6.0 Normal 5.0-9.0 [facility] Comment on above: Performed By: #### U MICAO, UAX ####[address] , [place] 8171483 Lab Director: Suzette Pitt MD Protein Ql (U) Negative Normal NEG [facility] Comment on above: Performed By: #### U MICAO, UAX ####[address] , [place] 804[address]83 lab Director: Suzette Pitt MD Spec. [place],Ur >1.030 High 1.010-1.020 [facility] Comment on above: Performed By: #### U MICAO, UAX ####[address] [place] [address] lab Director: Suzette Pitt MD Urobilinogen,Ur Normal Normal 0.0-1.0 [facility] Comment on above: Performed By: #### U MICAO, UAX ####[address] , [place] [phone] lab Director: Suzette Pitt MD Urinalysis,Microon 4 Bacteria TRACE Abnormal NONE [facility] Comment on above: Performed By: #### U MICAO, UAX ####[address] , [place] 31[address] lab Director: Suzette Pitt MD Epithelial cells LM Ql (Urine sed) 2 TO 5 Normal 0-25 [facility] Comment on above: Performed By: #### U MICAO, UAX ####[address] , [place] [id number] lab Director: Suzette Pitt MD Mucus Strands TRACE Abnormal NONE [facility] Comment on above: Performed By: #### U MICAO, UAX ####[address] , [place] 7[address] lab Director: Suzette Pitt MD Urine RBC's None Normal 0-2 [facility] Comment on above: Performed By: #### U MICAO, UAX ####[address] [place] [address] lab Director: Suzette Pitt MD Urine WBC's 0 TO 2 Normal 0-5 [facility] Comment on above: Performed By: #### U MICAO, UAX ####[facility] [place] [address] lab Director: Suzette Pitt MD [facility] DIGITAL SCREEN BILA TERALon 04-15-2022 No mammographic evidence of malignancy BIRADS: BIRADS - CATEGORY 1 Negative. Normal interval follow-up is recommended in 12 months. OVERALL ASSESSMENT - NEGATIVE A letter of notification will be sent to the patient regarding the results. [employer] recommends annual mammograms for women 40 [address] [facility] EXAMINATION: SCREENING DIGITAL BILATERAL MAMMOGRAM WITH TOMOSYNTHESIS, 04/14/2022 TECHNIQUE: Screening mammography was performed with tomosynthesis including MLO and CC views of the bilateral breasts. Computer aided detection was used for the interpretation of this exam. COMPARISON: August 22, 2019 HISTORY: Screening. FINDINGS: Breasts are composed of scattered fibroglandular density. There is no dominant mass, architectural distortion or concerning grouping of microcalcification in either breast. [facility] DIGITAL SCREEN BILA TERALOrdered By: Matt Peterson on 04-15-2022 [employer] Phone: [facility] DIGITAL SCREEN BILA TERALon 04-14-2022 Radiology Study observation (narrative) [employer] Phone: VL DUP LOWER EXTREMITY VENOU S RIGHTon 10-12-2020 [facility] Vascular Lower Extremities DVT Study Procedure Patient Name LEO Date of Study 10/11/2020 EMILY Zavala Date of 1965 Gender Female Age 54 year(s) Race Room Number Corporate ID [id number] # Patient Acct [id number] # MR # [id number] Switchman Yuly Carrion RVT Interpreting Physician Brianna Ace MD Referring Referring Physician Guy Lorenzana Nurse Practitioner Procedure Type of Study: Veins: Lower Extremities DVT Study, Venous Scan Lower Right. Indications for Study:Pain, leg. Patient Status:Out Patient. Technical Quality:Adequate visualization. Conclusions Summary No evidence of superficial or deep venous thrombosis in the right lower extremity. Signature ---- ---- ---- ---- Findings: Right Impression: Common femoral, femoral, deep femoral, popliteal, tibials, peroneal, and saphenous veins were evaluated. All veins were compressible and with normal doppler responses. Velocities are measured in cm/s ; Diameters are measured in cm Right Lower Extremities DVT Study Measurements Right 2D Measurements + +-- --------+ ----+ + !Location !Visualized!Compress ibility!Thrombosis! + +-- --------+ ----+ + !Common Femoral !Yes !Yes !None ! + +-- --------+ ----+ + !Prox Femoral !Yes !Yes !None ! + +-- --------+ ----+ + !Mid Femoral !Yes !Yes !None ! + +-- --------+ ----+ + !Dist Femoral !Yes !Yes !None ! + +-- --------+ ----+ + !Deep Femoral !Yes !Yes !None ! + +-- --------+ ----+ + !Popliteal !Yes !Yes !None ! + +-- --------+ ----+ + !Sapheno Femoral Junction !Yes !Yes !None ! + +-- --------+ ----+ + !PTV !Yes !Yes !None ! + +-- --------+ ----+ + !Peroneal !Yes !Yes !None ! + +-- --------+ ----+ + !Gastroc !Yes !Yes !None ! + +-- --------+ ----+ + !GSV Thigh !Yes !Yes !None ! + +-- --------+ ----+ + !GSV Knee !Yes !Yes !None ! + +-- --------+ ----+ + !GSV Ankle !Yes !Yes !None ! + +-- --------+ ----+ + !SSV !Yes !Yes !None ! + +-- --------+ ----+ + Right Doppler Measurements + --------+------+---- --+ + !Location !Signal!Reflux!Reflu x (msec) ! + --------+------+---- --+ + !Common Femoral !Phasic! ! ! + --------+------+---- --+ + !Prox Femoral !Phasic! ! ! + --------+------+---- --+ + !Popliteal !Phasic! ! ! + --------+------+---- --+ + [facility] Phone: Wil, pn Incoming Cardio Results From [employer] - 10/12/2020 3:27 PM EDT [facility] Vascular Lower Extremities DVT Study Procedure Patient Name LEO Date of Study 10/11/2020 EMILY Zavala Date of 1965 Gender Female Age 54 year(s) Race Room Number Corporate ID [id number] # Patient Acct [id number] # MR # [id number] Switchman Yuly Carrion RVT Interpreting Physician Brianna Ace MD Referring Referring Physician Guy Lorenzana Nurse Practitioner Procedure Type of Study: Veins: Lower Extremities DVT Study, Venous Scan Lower Right. Indications for Study:Pain, leg. Patient Status:Out Patient. Technical Quality:Adequate visualization. Conclusions Summary No evidence of superficial or deep venous thrombosis in the right lower extremity. Signature ---- ---- ---- ---- Findings: Right Impression: Common femoral, femoral, deep femoral, popliteal, tibials, peroneal, and saphenous veins were evaluated. All veins were compressible and with normal doppler responses. Velocities are measured in cm/s ; Diameters are measured in cm Right Lower Extremities DVT Study Measurements Right 2D Measurements + +-- --------+ ----+ + !Location !Visualized!Compress ibility!Thrombosis! + +-- --------+ ----+ + !Common Femoral !Yes !Yes !None ! + +-- --------+ ----+ + !Prox Femoral !Yes !Yes !None ! + +-- --------+ ----+ + !Mid Femoral !Yes !Yes !None ! + +-- --------+ ----+ + !Dist Femoral !Yes !Yes !None ! + +-- --------+ ----+ + !Deep Femoral !Yes !Yes !None ! + +-- --------+ ----+ + !Popliteal !Yes !Yes !None ! + +-- --------+ ----+ + !Sapheno Femoral Junction !Yes !Yes !None ! + +-- --------+ ----+ + !PTV !Yes !Yes !None ! + +-- --------+ ----+ + !Peroneal !Yes !Yes !None ! + +-- --------+ ----+ + !Gastroc !Yes !Yes !None ! + +-- --------+ ----+ + !GSV Thigh !Yes !Yes !None ! + +-- --------+ ----+ + !GSV Knee !Yes !Yes !None ! + +-- --------+ ----+ + !GSV Ankle !Yes !Yes !None ! + +-- --------+ ----+ + !SSV !Yes !Yes !None ! + +-- --------+ ----+ + Right Doppler Measurements + --------+------+---- --+ + !Location !Signal!Reflux!Reflu x (msec) ! + --------+------+---- --+ + !Common Femoral !Phasic! ! ! + --------+------+---- --+ + !Prox Femoral !Phasic! ! ! + --------+------+---- --+ + !Popliteal !Phasic! ! ! + --------+------+---- --+ + [employer] [facility] Phone: TSH without Reflexon 021 TSH Qn 0.63 m[IU]/L [facility] Phone: CK MBon 08-13-2020 CK.MB [Mass/Vol] 1.4 ng/mL <5.4 [employer] [place], [place] Troponinon 08-13-2020 Troponin I.cardiac [Mass/Vol] NOT REPORTED [place] Troponin T.cardiac [Mass/Vol] NOT REPORTED <0.03 ng/mL [place] Troponin, High Sensitivity 6 ng/L 0 - 14 ng/L [place] Comment on above: High Sensitivity Troponin values cannot be compared with other Troponin methodologies. Patients with high levels of Biotin oral intake (i.e >5mg/day) may have falsely decreased Troponin levels. Samples collected within 8 hours of biotin intake may require additional information for diagnosis. XR CHEST (2 VW)on 08-13-2020 No acute cardiopulmonary process. Small hiatus hernia. [facility] Phone: EXAMINATION: TWO XRAY VIEWS OF THE CHEST 08/13/2020 4:30 pm COMPARISON: None. HISTORY: ORDERING SYSTEM PROVIDED HISTORY: Shoulder blade pain TECHNOLOGIST PROVIDED HISTORY: pain under should blade, does not radiate. FINDINGS: The heart is not enlarged. No pulmonary edema. No focal lung consolidation or infiltrate. Retrocardiac ovoid opacity is consistent with small hiatus hernia. Mild S-shaped thoracolumbar scoliosis and probable bone island in the 5th posterolateral left rib. [facility] Phone: Wil, pn Incoming Radiant Results From [employer] - 08/13/2020 4:47 PM EST EXAMINATION: TWO XRAY VIEWS OF THE CHEST 08/13/2020 4:30 pm COMPARISON: None. HISTORY: ORDERING SYSTEM PROVIDED HISTORY: Shoulder blade pain TECHNOLOGIST PROVIDED HISTORY: pain under should blade, does not radiate. FINDINGS: The heart is not enlarged. No pulmonary edema. No focal lung consolidation or infiltrate. Retrocardiac ovoid opacity is consistent with small hiatus hernia. Mild S-shaped thoracolumbar scoliosis and probable bone island in the 5th posterolateral left rib. IMPRESSION: No acute cardiopulmonary process. Small hiatus hernia. [facility] [employer] Work Phone: Hemoglobin and Hematocrit, [facility] 12-16-2019 Hematocrit (Bld) [Volume fraction] 27.2 % Low 36.3 - 47.1 % [place] Hemoglobin (Bld) [Mass/Vol] 7.8 g/dL Low 11.9 - 15.1 g/dL [place] Interpretation and review of laboratory results Abnormal [place] Hemoglobin and hematocrit, [facility] 12-16-2019 Hematocrit (Bld) [Volume fraction] 24.2 % Low 36.3 - 47.1 % [place] Hemoglobin (Bld) [Mass/Vol] 6.5 g/dL Critically low 11.9 - 15.1 g/dL [place] Interpretation and review of laboratory results Abnormal [place] CBC auto differentialon 12-04 Basophils (Bld) [#/Vol] 0.00 10*3/uL [place] Basophils/100 WBC (Bld) 0 % 0 - 2 % [place] Differential Type NOT REPORTED [place] Eosinophils (Bld) [#/Vol] 0.00 10*3/uL [place] Eosinophils/100 WBC (Bld) 0 % Low 1 - 4 % [place] Erythrocyte distribution width (RBC) [Ratio] 16.9 % High 11.8 - 14.4 % [place] Hematocrit (Bld) [Volume fraction] 25.2 % Low 36.3 - 47.1 % [place] Hemoglobin (Bld) [Mass/Vol] 7.2 g/dL Low 11.9 - 15.1 g/dL [place] Immature granulocytes (Bld) [#/Vol] 1 % High 0 [place] Immature granulocytes (Bld) [#/Vol] 0.14 10*3/uL [place] Interpretation and review of laboratory results Abnormal [place] Lymphocytes (Bld) [#/Vol] 1.90 10*3/uL [place] Lymphocytes/100 WBC (Bld) 14 % Low 24 - 43 % [place] MCH (RBC) [Entitic mass] 20.4 pg Low 25.2 - 33.5 pg [place] MCHC (RBC) [Mass/Vol] 28.6 g/dL 28.4 - 34.8 g/dL [place] MCV (RBC) [Entitic vol] 71.4 fL Low 82.6 - 102.9 fL [place] Monocytes (Bld) [#/Vol] 0.82 10*3/uL [place] Monocytes/100 WBC (Bld) 6 % 3 - 12 % [place] Morphology [place] (Bld) [Interp] HYPOCHROMASIA PRESENT [place] Morphology [place] (Bld) [Interp] MICROCYTOSIS PRESENT [place] Platelet mean volume (Bld) [Entitic vol] 9.3 fL 8.1 - 13.5 fL [place] Platelets (Bld) [#/Vol] NOT REPORTED [place] Platelets (Bld) [#/Vol] 383 10*3/uL [place] RBC (Bld) [#/Vol] 3.53 10*6/uL Low 3.95 - 5.1 1 m/uL [place] RBC morphology finding Nom (Bld) NOT REPORTED [place] Segmented neutrophils/100 WBC (Bld) 79 % High 36 - 65 % [place] Segs Absolute 10.74 [place] WBC (Bld) [#/Vol] 0.0 10*3/uL 0.0 per 10 0 WBC [place] WBC (Bld) [#/Vol] 13.6 10*3/uL [place] WBC Morphology NOT REPORTED [place] Hemoglobin and hematocrit, b [facility] 12-14-2019 Hematocrit (Bld) [Volume fraction] 32.2 % Low 36.3 - 47.1 % [place] Hemoglobin (Bld) [Mass/Vol] 8.9 g/dL Low 11.9 - 15.1 g/dL [place] Interpretation and review of laboratory results Abnormal [place] COVID-19on 12-10-2019 SARS-CoV-2 [place] SARS-CoV-2, PCR Not Detected Not Detected [place] Comment on above: (NOTE) The [employer] RealTime SARS-CoV-2 assay is a real-time (rt) reverse transcriptase (RT) polymerase chain reaction (PCR) test intended for the [employer] system. The SARS-CoV-2 primer and probe sets are designed to detect RNA from SARS-CoV-2 in nasopharyngeal (METALLURGY TEACHER) and oropharyngeal (OP) swabs from patients with signs and symptoms of infection who are suspected of COVID-19. Results are for the identification of SARS-CoV-2 RNA. The SARS-CoV-2 RNA is generally detectable in a nasopharyngeal and oropharyngeal swabs during the acute phase of infection. The [employer] RealTime SARS-CoV-2 assay is intended for use by qualified and trained clinical laboratory personnel specifically instructed and trained in the techniques of real-time PCR and in vitro diagnostic procedures. The [employer] RealTime SARS-CoV-2 assay is only for use under the Food and Drug Administration Emergency Use Authorization. Testing is limited to laboratories certified under the Clinical Laboratory Improvement Amendments of 1988 (CLIA), 42 U.S.C. 263a, to perform high complexity tests. Not Detected: Not detected does not preclude SARS-CoV-2 infection and should not be used as the sole basis for patient management decisions. Not detected results must be combined with clinical observations, patient history, and epidemiological information. The above 1 analytes were performed by [address] [place] [address] SARS-CoV-2, Rapid [facility] [place] Source .NASOPHARYNGEAL SWAB [place] CBC Auto Differentialon Basophils (Bld) [#/Vol] 0.00 10*3/uL [place] Basophils/100 WBC (Bld) 0 % 0 - 2 % [place] Differential Type NOT REPORTED [place] Eosinophils (Bld) [#/Vol] 0.07 10*3/uL [place] Eosinophils/100 WBC (Bld) 1 % 1 - 4 % [place] Erythrocyte distribution width (RBC) [Ratio] 17.2 % High 11.8 - 14.4 % [place] Hematocrit (Bld) [Volume fraction] 31.6 % Low 36.3 - 47.1 % [place] Hemoglobin (Bld) [Mass/Vol] 8.6 g/dL Low 11.9 - 15.1 g/dL [place] Immature granulocytes (Bld) [#/Vol] 0 % 0 [place] Immature granulocytes (Bld) [#/Vol] 0.00 10*3/uL [place] Interpretation and review of laboratory results Abnormal [place] Lymphocytes (Bld) [#/Vol] 2.63 10*3/uL [place] Lymphocytes/100 WBC (Bld) 36 % 24 - 43 % [place] MCH (RBC) [Entitic mass] 20.3 pg Low 25.2 - 33.5 pg [place] MCHC (RBC) [Mass/Vol] 27.2 g/dL Low 28.4 - 34.8 g/dL [place] MCV (RBC) [Entitic vol] 74.5 fL Low 82.6 - 102.9 fL [place] Monocytes (Bld) [#/Vol] 0.66 10*3/uL [place] Monocytes/100 WBC (Bld) 9 % 3 - 12 % [place] Morphology Haris (Bld) [Interp] HYPOCHROMASIA PRESENT [place] Platelet mean volume (Bld) [Entitic vol] 9.1 fL 8.1 - 13.5 fL [place] Platelets (Bld) [#/Vol] NOT REPORTED [place] Platelets (Bld) [#/Vol] 460 10*3/uL High [place] RBC (Bld) [#/Vol] 4.24 10*6/uL 3.95 - 5.1 1 m/uL [place] RBC morphology finding Nom (Bld) NOT REPORTED [place] Segmented neutrophils/100 WBC (Bld) 54 % 36 - 65 % [place] Segs Absolute 3.94 [place] WBC (Bld) [#/Vol] 0.0 10*3/uL 0.0 per 10 0 WBC [place] WBC (Bld) [#/Vol] 7.3 10*3/uL [place] WBC Morphology NOT REPORTED [place] EKG 12 Leadon 12-09-2019 Atrial Rate 71 BPM [place] P [place] 47 degrees [place] P-R Interval 142 ms [place] Q-T Interval 398 ms [place] QRS Duration 82 ms [place] QTc Calculation (Bazett) 432 ms [place] R [place] 7 degrees [place] T [place] 21 degrees [place] Ventricular Rate 71 BPM [place] Normal sinus rhythm with sinus arrhythmia Normal ECG When compared with ECG of 31-JUL-2012 21:24, No significant change was found Confirmed by TONNY THOMSON ([id number]) on 12/09/2019 12:51:05 PM [place], [place] Wil, Mhpn Incoming Ekg Results From [facility] - 12/09/2019 12:51 PM EDT Normal sinus rhythm with sinus arrhythmia Normal ECG When compared with ECG of 31-JUL-2012 21:24, No significant change was found Confirmed by TONNY THOMSON ([id number]) on 12/09/2019 12:51:05 PM [place] TYPE AND SCREENon 12-09-2019 ABO/Rh Positive [place] Arm Band Number [id number] [place], [place] Expiration Date 12/16/2019,5223 [place], [place] hCG, Serum, Qualitativeon hCG Qual Negative NEGATIVE [place] Comment on above: Specimens with hCG l evels near the threshold of the test (25 mIU/mL) may give a negative or indeterminate result. In such cases, another test should be performed with a new specimen in 48-72 hours. If early is suspected clinically in this setting, correlation with quantitative serum b-hCG level is suggested. [employer] has confirmed the use of plasma for this test. This has not been cleared or approved by the U.S. Food and Drug Administration. The FDA has determined that such clearance is not necessary. LISA DIGITAL SCREEN W CAD HANNA ATERALon 08-24-2019 No mammographic evidence for malignancy. BIRADS: BIRADS - CATEGORY 1 Negative, no evidence of malignancy. Normal interval follow-up is recommended in 12 months. OVERALL ASSESSMENT - NEGATIVE A letter of notification will be sent to the patient regarding the results. The [employer] recommends annual mammograms for women 40 years and older. [place] EXAMINATION: BILATERAL DIGITAL SCREENING MAMMOGRAM, 08/22/2019 4:13 pm TECHNIQUE: CC and MLO views of the left and right breasts were obtained. Computer aided detection was utilized in the interpretation of this exam. COMPARISON: 03/05/2017 HISTORY: Screening. FINDINGS: The breasts are almost entirely fatty. There is no new dominant mass, suspicious microcalcification, or area of architectural distortion. No abnormality is identified on the tomosynthesis images. [facility] [place], Mhpn Incoming Radiant Results From [facility] - 08/24/2019 8:28 AM EST EXAMINATION: BILATERAL DIGITAL SCREENING MAMMOGRAM, 08/22/2019 4:13 pm TECHNIQUE: CC and MLO views of the left and right breasts were obtained. Computer aided detection was utilized in the interpretation of this exam. COMPARISON: 03/05/2017 HISTORY: Screening. FINDINGS: The breasts are almost entirely fatty. There is no new dominant mass, suspicious microcalcification, or area of architectural distortion. No abnormality is identified on the tomosynthesis images. IMPRESSION: No mammographic evidence for malignancy. BIRADS: BIRADS - CATEGORY 1 Negative, no evidence of malignancy. Normal interval follow-up is recommended in 12 months. OVERALL ASSESSMENT - NEGATIVE A letter of notification will be sent to the patient regarding the results. The [employer] recommends annual mammograms for women 40 years and older. [facility] DE CT HEAD WO CONon 05-16-2019 CT HEAD WO CON Patient: LEOEMILY Exam Date: 05/16/2019 : 1965 Gender:F Ordering : DR KEVIN ARITA . Admission #: [id number] Family : Order #: [id number] CLICK HERE TO VIEW EXAM RADIOLOGY REPORT PROCEDURE: CT HEAD WITHOUT CONTRAST COMPARISON: None. INDICATIONS: Acute head injury to left frontal aspect TECHNIQUE: Axial CT images were obtained without IV contrast. DOSE: 1074 mGycm FINDINGS: BRAIN: No edema, hemorrhage, mass, acute infarction, or inappropriate atrophy. CSF SPACES: No hydrocephalus, subarachnoid hemorrhage, or mass. Appropriate for age. SKULL: No fracture, mass, or other significant visible lesion. SINUSES: No significant mucosal thickening or fluid on the limited views. ORBITS: No appreciable abnormality on the limited views. OTHER: Negative CONCLUSION: 1. No acute intracranial abnormality Dictated by: Suzette Moseley M.D. on 05/16/2019 at 10:27 Approved by: Suzette Moseley M.D. on 05/16/2019 at 10:35 Normal [facility] Vital Signs Date Time Vital Sign Value Performing Clinician Facility 12-16-2019 11:48-0400 Body Temperature 96.69 [degF] [place], [place] 12-16-2019 11:48-0400 BP Diastolic 66 mm[Hg] [place], [place] Comment on above: [facility] 12-16-2019 11:48-0400 BP Systolic 109 mm[Hg] [place] Comment on above: [facility] 12-16-2019 11:48-0400 Pulse (Heart Rate) 68 /min [place] 12-16-2019 11:48-0400 Pulse Oximetry 98 % [place] 12-16-2019 11:48-0400 Respiratory Rate 16 /min [facility] [place] 12-16-2019 05:03-0400 BMI (Body Mass Index) 40.15 kg/m2 [place] 12-16-2019 05:03-0400 Body weight 99.56 kg [place] 12-15-2019 10:04-0400 Height 157.5 cm [facility] [place] 12-09-2019 11:29-0400 BMI (Body Mass Index) 39.38 kg/m2 Linh [facility], [place] 12-09-2019 11:29-0400 Body Temperature 97.5 [degF] Linh Hernadez [place], [place] 12-09-2019 11:29-0400 Body weight 97.66 kg [place] 12-09-2019 11:29-0400 BP Diastolic 85 mm[Hg] [facility] , [place] 12-09-2019 11:29-0400 BP Systolic 131 mm[Hg] [facility] , [place] 12-09-2019 11:29-0400 [facility].5 [facility] [place] 12-09-2019 11:29-0400 Pulse (Heart Rate) 90 /min [place] 12-09-2019 11:29-0400 Pulse Oximetry 98 % [facility] , [place] 12-09-2019 11:29-0400 Respiratory Rate 20 /min [place] Encounters Encounter Date Encounter Type Care Provider Facility Start: 07-13-2024 End: 07-13-2024 ambulatory BRIIDAVID MCKEONUGHN [facility] Start: 07-13-2024 Encounter for gynecological examination (general) (routine) without abnormal [facility] Start: 07-13-2024 End: 07-13-2024 Patient encounter status Brii Bolanos CNP Work Phone: [facility] Start: 07-13-2024 End: 07-13-2024 Subsequent hospital visit by physician Brii Bolanos CNP Work Phone: [facility] Comment on above: Encounter for gyneco logical examination Start: 06-27-2024 End: 06-27-2024 Bamboo flowsheet Cristino Laboy DO Work Phone: [facility] Start: 06-27-2024 End: 06-27-2024 Bamboo flowsheet Cristino Neno DO Work Phone: [facility] Start: 06-27-2024 End: 06-27-2024 Patient encounter procedure Cristino Laboy DO Work Phone: [facility] Comment on above: Left carpal tunnel s yndrome (Primary Dx); Numbness and tingling Start: 06-27-2024 End: 06-27-2024 ambulatory CRISTINO LABOY Not Available Start: 04-14-2024 ambulatory WABENO Sally MENDOZA [facility] Start: 03-23-2024 End: 03-25-2024 [facility] Start: 03-23-2024 End: 03-25-2024 Subsequent hospital visit by physician [facility] Comment on above: Breast cancer screen ing by mammogram Start: 02-29-2024 End: 03-02-2024 ambulatory [facility] Start: 02-09-2024 End: 02-11-2024 Subsequent hospital visit by physician [facility] Faye Dr Room 2 [facility] Comment on above: Neck pain; Bilateral hand numbness Start: 02-09-2024 Encounter for genera l adult medical examination without abnormal findings [facility] Start: 02-09-2024 End: 02-11-2024 ambulatory [facility] Start: 04-14-2022 End: 04-16-2022 Subsequent hospital visit by physician [facility] Comment on above: Visit for screening mammogram Start: 07-22-2021 End: 07-24-2021 Subsequent hospital visit by physician Guy Lorenzana MD Work Phone: [facility] Start: 10-11-2020 End: 10-13-2020 Subsequent hospital visit by physician [facility] Vascular Imaging Room [facility] Comment on above: Weight gain Acute pain of right lower extremity Start: 08-13-2020 End: 08-15-2020 Subsequent hospital visit by physician Joseph Xr Dr Room 4 [facility] Comment on above: Shoulder blade pain Start: 12-14-2019 End: 12-16-2019 Evaluation and management of inpatient Linh Hernadez Work Phone: [facility] Comment on above: S/P SHUN (total abdom inal hysterectomy) (Primary Dx) Start: 12-09-2019 End: 12-13-2019 Subsequent hospital visit by physician Joseph Covid19 Pat Screening Schedule [facility] Comment on above: Encounter for pre-op erative laboratory testing Pre-op testing Start: 08-22-2019 End: 08-24-2019 Subsequent hospital visit by physician [facility] Comment on above: Screening for breast cancer Start: 08-11-2019 End: 08-11-2019 Subsequent hospital visit by physician Guy Lorenzana [facility] Comment on above: ASCUS with positive high risk HPV cervical Start: 06-22-2019 End: 06-22-2019 Subsequent hospital visit by physician Guy Lorenzana MD Work Phone: [facility] Start: 06-22-2019 End: 06-22-2019 Subsequent hospital visit by physician Guy Lorenzana MD Work Phone: [facility] Comment on above: Routine Papanicolaou smear Start: 05-16-2019 End: 05-16-2019 Patient encounter procedure KEVIN ARITA Facility:[facility] Start: 03-01-2019 End: 03-01-2019 Subsequent hospital visit by physician Yan Christine [facility] Comment on above: Arrived Start: 02-24-2019 End: 02-24-2019 Subsequent hospital visit by physician Colton Hugo [facility] Start: 02-22-2019 End: 02-22-2019 Subsequent hospital visit by physician Yan Christine [facility] Comment on above: Arrived Start: 02-17-2019 End: 02-17-2019 Subsequent hospital visit by physician Cotlon Hugo [facility] Comment on above: Arrived Start: 02-15-2019 End: 02-15-2019 Subsequent hospital visit by physician Alyssa Caldera [facility] Comment on above: Arrived Procedures Date Procedure Procedure Detail Performing Clinician Start: 06-27-2024 End: 06-27-2024 Needle emg ea extremty w/paraspinl area complete Cristino Laboy DO Work Phone: Start: 03-23-2024 Screening mammography bi 2-view breast inc cad Brii Mendoza MANAGER INSTRUMENTATION - MULTIPLE EFFECT EVAPORATOR OPERATOR Work Phone: Start: 04-14-2022 Screening mammography bi 2-view breast inc cad Guy Lorenzana MD Work Phone: Start: 10-11-2020 Dup-scan xtr veins unilateral/limited study Guy Lorenzana Work Phone: Start: 10-11-2020 Assay of thyroid stimulating hormone tsh Guy Lorenzana Work Phone: Start: 08-13-2020 Radiologic exam chest 2 views Melinda Herrera Work Phone: Start: 08-13-2020 Assay of troponin quantitative Melinda Wickord Work Phone: Start: 08-13-2020 CK.MB [Mass/Vol] Melinda Lunamelly Herrera Work Phone: Start: 12-16-2019 TRANSFUSE RED BLOOD CELLS Linh sánchez Work Phone: Start: 12-16-2019 End: 12-16-2019 Blood count hemoglobin Linh Hernadez Work Phone: Start: 12-15-2019 Blood count complete auto&auto difrntl wbc Linh Hernadez Work Phone: Start: 12-14-2019 Blood count hemoglobin Linh Hernadez Work Phone: Start: 12-14-2019 End: 01-29-2021 History of total hysterectomy History of total hysterectomy Guy Lorenzana MD Work Phone: Start: 12-14-2019 End: 12-14-2019 Total abdominal hysterect w/wo rmvl tube ovary Linh Hernadez Work Phone: Start: 12-09-2019 Antibody screen Linh Hernadez Start: 12-09-2019 Ecg routine ecg w/least 12 lds i&r only Linh Hernadez Work Phone: Start: 12-09-2019 EKG REPORT Hpf Scanning Start: 12-09-2019 Blood typing serologic abo Linh Hernadez Work Phone: Start: 12-09-2019 COVID-19 Conner Lisa Work Phone: Start: 12-09-2019 Blood count complete auto&auto difrntl wbc Linh Hernadez Work Phone: Start: 12-09-2019 Gonadotropin chorionic qualitative Linh Hernadez Work Phone: Start: 08-22-2019 Screening digital breast tomosynthesis bi Linh Hernadez Work Phone: Start: 06-01-2017 Colonoscopy Mth Mt Plan of Treatment Date Care Activity Detail Author Start: 02-08-2034 DTaP/Tdap/Td vaccine (2 - Td or Tdap) DTaP/Tdap/Td vaccine (2 - Td or Tdap) [facility] Start: 02-08-2029 Lipid panel Lipids [facility] Start: 06-01-2027 Colon cancer screen colonoscopy Colon cancer screen colonoscopy [place] Start: 06-01-2027 Screening for malign ant neoplasm of colon [facility] Start: 08-17-2026 Lipid panel Lipids [facility] Start: 03-23-2026 Screening for malign ant neoplasm of breast Breast cancer screen [facility] Start: 02-08-2025 Depression Screen Depression Screen [facility] Start: 02-08-2025 Hemoglobin A1c measurement A1C test (Diabetic or Prediabetic) [facility] Start: 12-13-2024 End: 12-13-2024 Patient encounter procedure 12/13/2024 4:00 PM EDT Office Visit [facility] [address] [place] [address] [address] [place] [address] Brii Mendoza, MANAGER INSTRUMENTATION - MULTIPLE EFFECT EVAPORATOR OPERATOR [address] [facility] [address] [place] [address] 6 month f/u [facility] Comment on above: 6 month f/u Start: 09-05-2024 End: 09-05-2024 Patient encounter procedure 09/05/2024 4:00 PM EST Office Visit Guy Lorenzana MD [address] [place] [address] [place] [address] Guy Lorenzana MD [address] [place] [address], [place] [address] wellness Guy Lorenzana MD Comment on above: wellness Start: 08-10-2024 End: 08-10-2024 Patient encounter procedure 08/10/2024 3:00 PM EST Office Visit [facility] [address] [place] [address] [address] [place] [address] Luis Stockton MD [address] [place] [address] [address] [place] [address] f/u weight mgmt [facility] Comment on above: f/u weight mgmt Start: 06-27-2024 End: 06-27-2024 Patient encounter procedure 06/27/2024 11:30 AM EST Procedure Visit [facility] [address] [place] [address] Cristino Laboy DO [address] [place] [address] Arrived [facility] Comment on above: Arrived Start: 06-22-2024 Cervical cancer screen Cervical canc er screen [facility] Work Phone: Start: 06-22-2024 Screening for malign ant neoplasm of cervix Cervical cancer screen [facility] [place] [place] Start: 06-14-2024 End: 06-14-2024 Patient encounter procedure 06/14/2024 3:20 PM EST Office Visit [facility] [address] [place] [address] [address] [place] [address] Brii Mendoza, MANAGER INSTRUMENTATION - MULTIPLE EFFECT EVAPORATOR OPERATOR [address] [place] [address] Dr [address] [place] [address] wellness [facility] Comment on above: wellness Start: 04-14-2024 Screening for malign ant neoplasm of breast Breast cancer screen [facility] Start: 04-05-2024 End: 04-05-2024 Patient encounter procedure [facility] Comment on above: neck + right flank f /u neck + right flank f /u make an appt with Dr Stockton for weight loss Start: 03-23-2024 End: 03-23-2024 Patient encounter procedure 03/23/2024 6:00 PM EDT Appointment [facility] [address] [place] [address] EPIC/ PT [facility] Comment on above: EPIC/ PT Start: 03-06-2024 COVID-19 Vaccine ( season) COVID-19 Vaccine () [facility] Start: 03-06-2024 Influenza vaccination Influenza Vacc ine (#1) [facility] Start: 03-02-2024 End: 03-02-2024 Patient encounter procedure 03/02/2024 4:00 PM EDT Office Visit Guy Lorenzana MD [address] [place] [id number] Guy Lorenzana MD [address] [place] [address] [place] [address] 6 month f/u Guy Lorenzana MD Comment on above: 6 month f/u Start: 02-29-2024 End: 02-29-2024 Patient encounter procedure 02/29/2024 4:00 PM EDT Appointment [facility] [address] [place] [address] EPIC/ PT [facility] Comment on above: EPIC/ PT Start: 02-04-2024 Influenza vaccination Flu vaccine (# 1) [facility] Start: 09-05-2023 Lipid panel Lipid screen [facility] Start: 09-05-2023 Lipid screen Lipid screen [facility] [place], [place] Start: 03-06-2023 COVID-19 Vaccine ( season) COVID-19 Vaccine ( season) [facility] Start: 02-18-2023 Depression Screen Depression Screen [facility] Start: 02-18-2023 DTaP/Tdap/Td vaccine (1 - Tdap) DTaP/Tdap/Td vaccine (1 - Tdap) [facility] [employer] Comment on above: Postponed from 11/26 (Patient Refused) Start: 08-19-2022 End: 08-19-2022 Patient encounter procedure 08/19/2022 Office Visit Internal Medicine Guy Lorenzana MD [address] [place] [address], [facility] [place] [address] Guy Lorenzana MD Start: 07-08-2022 COVID-19 Vaccine (3 - Booster for Moderna series) COVID-19 Vaccine (3 - Booster for Moderna series) [facility] Comment on above: Postponed from 04/04 (Not Indicated) Start: 02-03-2022 Influenza vaccination Flu vaccine (# 1) [facility] Start: 12-26-2021 Depression Screen Depression Screen [facility] Start: 10-09-2021 DTaP/Tdap/Td vaccine (1 - Tdap) DTaP/Tdap/Td vaccine (1 - Tdap) [facility] Comment on above: Postponed from 11/26 (Patient Refused) Start: 08-22-2021 Screening for malign ant neoplasm of breast Breast cancer screen [facility] Start: 08-02-2021 End: 08-02-2021 Patient encounter procedure 08/02/2021 Office Visit Internal Medicine Guy Lorenzana MD [address] [place] [address], [facility] [place] [address] Guy Lorenzana MD Start: 07-30-2021 Influenza vaccination [facility] [place] Comment on above: Postponed from 03/06 (Patient Refused) Postponed from 03/06 (Patient Refused) Start: 05-04-2021 COVID-19 Vaccine (3 - Booster for Moderna series) COVID-19 Vaccine (3 - Booster for Moderna series) [facility] Start: 03-10-2021 Creatinine measurement Creatinine mo nitoring [facility] Start: 03-10-2021 Potassium monitoring Potassium monit oring [facility] Start: 03-06-2021 Influenza vaccination Flu vaccine (# 1) [facility] Start: 01-29-2021 End: 01-29-2021 Office Visit 01/29/2021 Office Visit Internal Medicine Guy Lorenzana MD [address] [facility], [place] [address] Guy Lorenzana MD Start: 10-31-2020 COVID-19 Vaccine (2 - Moderna 2-dose series) COVID-19 Vaccine (2 - Moderna 2-dose series) [facility] Work Phone: Start: 08-20-2020 DTaP/Tdap/Td vaccine (1 - Tdap) DTaP/Tdap/Td vaccine (1 - Tdap) [place] Comment on above: Postponed from 11/26 (Not Indicated) Start: 03-06-2020 Influenza vaccination Flu vacc ine (Season Ended) [place] Start: 02-01-2020 End: 02-01-2020 Office Visit 02/01/2020 Office Visit Internal Medicine Guy Lorenzana MD [address] [place] [address], [facility] [place], [place] [id number] Guy Lorenzana MD Start: 12-14-2019 End: 12-14-2019 Hospital Encounter [facility] [place] Comment on above: HYSTERECTOMY ABDOMIN AL TOTAL-BSO (POSSIBLE APPENDECTOMY Start: 09-28-2019 End: 09-28-2019 Hospital Encounter [facility] [place] Comment on above: HYSTERECTOMY ABDOMIN AL TOTAL, BSO, POSSIBLE APPENDECTOMY Start: 09-23-2019 End: 09-23-2019 Appointment 09/23/2019 Appointment Pre-Admission Testing [facility] Start: 09-05-2019 Creatinine measurement Creatinine mo [place]itoring [place] Start: 09-05-2019 Creatinine monitoring Creatinine mon itoring [place] Start: 09-05-2019 Potassium monitoring Potassium monit oring [place] Start: 08-22-2019 End: 08-22-2019 Appointment 08/22/2019 Appointment Radiology [facility] Start: 08-12-2019 DTaP/Tdap/Td vaccine (1 - Tdap) DTaP/Tdap/Td vaccine (1 - Tdap) [place] Comment on above: Postponed from 11/26 (Not Indicated) Postponed from 11/26 (Not Indicated) Start: 08-12-2019 HIV screen HIV screen [place], [place] Comment on above: Postponed from 11/26 (Not Indicated) Start: 08-05-2019 Influenza vaccination Flu vaccine (# 1) [facility] [place] Comment on above: Postponed from 03/06 (Patient Refused) Start: 08-03-2019 End: 08-03-2019 Office Visit 08/03/2019 Office Visit Internal Medicine Guy Lorenzana MD [address] [place] [address], [place] [address] Guy Lorenzana MD Start: 07-13-2019 End: 07-13-2019 Professional / ancillary services management 07/13/2019 Ancillary Procedure Obstetrics and Gynecology Linh Hernadez MD [address] [place] [id number] [facility] ENVELOPE STAMPING MACHINE OPERATOR Start: 03-06-2019 Influenza vaccination Flu vaccine (# 1) [facility] Work Phone: Start: 03-05-2019 Breast cancer screen Breast cancer s miguel [place] Start: 03-03-2019 End: 03-03-2019 Appointment 03/03/2019 Appointment Physical Therapy Colton Hugo, [facility] Start: 03-01-2019 End: 03-01-2019 Appointment 03/01/2019 Appointment Physical Therapy [facility] Start: 02-24-2019 End: 02-24-2019 Appointment 02/24/2019 Appointment Physical Therapy Colton Hugo, PT [facility] Start: 02-22-2019 End: 02-22-2019 Appointment 02/22/2019 Appointment Physical Therapy [facility] Start: 02-17-2019 End: 02-17-2019 Appointment 02/17/2019 Appointment Physical Therapy Colton Hugo, PT [facility] Start: 2016 Screening for malign ant neoplasm of cervix [facility] Start: 2016 Shingles Vaccine (1 of 2) Shingles Vaccine (1 of 2) [place] Start: 11-27-2011 Screening for malign ant neoplasm of colon [facility] Start: 11-27-2007 Screening for malign ant neoplasm of cervix Pap Smear [facility] Start: 11-28-2006 Screening for malign ant neoplasm of breast Mammogram [facility] Start: 08-06-2002 Cervical cancer screen Cervical canc er screen [place] Start: 11-28-1996 Screening for malign ant neoplasm of cervix [facility] Start: 11-29-1987 Screening for malign ant neoplasm of cervix Pap Smear [facility] Start: 1985 DTaP/Tdap/Td vaccine (1 - Tdap) DTaP/Tdap/Td vaccine (1 - Tdap) [place] Start: 1985 Hepatitis B vaccine (1 of 3 - 19+ 3-dose series) Hepatitis B vaccine (1 of 3 - 19+ 3-dose series) [facility] Start: 1981 HIV screen HIV screen [place], [place] Start: 1981 HIV screening HIV screen [facility] [place] Start: 1977 DTaP/Tdap/Td vaccine (1 - Tdap) DTaP/Tdap/Td vaccine (1 - Tdap) [place] Start: 1966 Screening for malign ant neoplasm of colon [facility] Start: 1966 Hepatitis B vaccine (1 of 3 - 3-dose series) Hepatitis B vaccine (1 of 3 - 3-dose series) [facility] End: 12-09-2019 Culture, Urine Culture, Urine Microbiology Routine Encounter for pre-operative laboratory testing 1 Occurrences starting 12/09/2019 until 12/09/2019 [place] Comment on above: 1 Occurrences starti ng 12/09/2019 until 12/09/2019 Culture, Urine Culture, Urine Microbiology Routine Encounter for pre-operative laboratory testing 12/09/2019 11:11 AM EDT [place] End: 06-23-2019 Cytopathology procedure, preparation of smear, genital source PAP SMEAR Lab Routine Routine Papanicolaou smear 1 Occurrences starting 06/23/2019 until 06/23/2019 [facility] Work Phone: Comment on above: 1 Occurrences starti ng 06/23/2019 until 06/23/2019 End: 07-13-2024 Cytopathology procedure, preparation of smear, genital source PAP Smear Lab Routine Encounter for gynecological examination 1 Occurrences starting 07/13/2024 until 07/13/[address] Work Phone: Comment on above: 1 Occurrences starti ng 07/13/2024 until 07/13/2024 Hemoglobin and Hematocrit, Blood, Post Transfusion Hemoglobin and Hematocrit, Blood, Post Transfusion Lab Timed Post Transfusion Post Transfusion Post Transfustion for 1 Occurrences starting 12/16/2019 [place] Comment on above: Post Transfusion Pos t Transfusion Post Transfustion for 1 Occurrences starting 12/16/2019 Initiate Oxygen Ther apy Protocol Initiate Oxygen Therapy Protocol Respiratory Care Routine Daily until discontinued starting 12/14/2019 [place] Comment on above: Daily until disconti nued starting 12/14/2019 End: 12-16-2019 PREPARE RBC (CROSSMATCH), 1 Units PREPARE RBC (CROSSMATCH), 1 Units Blood Bank Non-Stat Once for 1 Occurrences starting 12/16/2019 until 12/16/2019 [place] Comment on above: Once for 1 Occurrenc es starting 12/16/2019 until 12/16/2019 Pulse oximetry, continuous Pulse oximetry, continuous Respiratory Care Routine Every 4hr until discontinued starting 12/14/2019 [place] Comment on above: Every 4hr until disc ontinued starting 12/14/2019 End: 12-15-2019 Surgical Pathology Surgical Pathology Lab Routine Once for 1 Occurrences starting 12/15/2019 until 12/15/2019 [place] Comment on above: Once for 1 Occurrenc es starting 12/15/2019 until 12/15/2019 End: 08-11-2019 Surgical Pathology Surgical Pathology Lab Routine ASCUS with positive high risk HPV cervical 1 Occurrences starting 08/11/2019 until 08/11/2019 [facility] Phone: Comment on above: 1 Occurrences starti ng 08/11/2019 until 08/11/2019 End: 02-09-2024 XR Cervical spine 2 or 3 Views [employer] Comment on above: 1 Occurrences starti ng 02/09/2024 until 02/09/2024 Immunizations Immunization Date Immunization Notes Care Provider Ghazala antonio 05-04-2024 influenza virus vaccine, unspecified formulation Brii Mendoza MANAGER INSTRUMENTATION - MULTIPLE EFFECT EVAPORATOR OPERATOR Work Phone: [facility] 02-09-2024 tetanus toxoid, redu ronan diphtheria toxoid, and acellular pertussis vaccine, adsorbed [facility] 2 [facility] 04-10-2021 influenza, injectabl e, quadrivalent, contains preservative [facility] Work Phone: 04-10-2021 influenza, seasonal, injectable [facility] 2 [facility] 11-02-2020 COVID-19, Moderna, Primary or Immunocompromised, PF, 100mcg/0.5mL Guy Lorenzana MD Work Phone: [facility] Work Phone: 10-03-2020 COVID-19, Moderna, P F, 100mcg/0.5mL [facility] 07-28-2019 zoster vaccine recombinant [facility] Work Phone: 05-26-2019 zoster vaccine recombinant [facility] Payers Date Payer Category Payer Private Health Insurance [facility] [id number] 2022 Unknown [id number] 2018 Unknown [employer] xxxxxxxxx 2018-Present [phone] [address] [place] [address] xxxxxxxxx [id number] 2018 Unknown [id number] 1966 Unknown [id number]. [id number] 1966 Unknown [id number]. [id number] 1966 Unknown [id number]. [id number] 1966 Unknown [id number]. [id number] 1966 Unknown [id number]. [id number] 1966 Unknown [id number]. [id number] 1966 Unknown [id number]. [id number] 1966 Unknown [id number]. [id number] 1966 Unknown [id number] [id number] 1959 Unknown [id number] Social History Date Type Detail Facility Start: 01-31-2019 End: 02-18-2022 Tobacco smoking status ARIS Never smoker [place] Start: 01-31-2019 End: 09-01-2023 Alcohol intake No [place] Start: 1965 End: 1965 Sex Assigned At Not on file [place] Start: 06-22-2019 End: 08-18-2019 Alcohol intake Current non-drinker of alcohol (finding) [facility] Work Phone: Start: 12-09-2019 End: 03-23-2024 Alcohol intake Current drinker of alcohol (finding) [place] Start: 12-09-2019 Alcohol Comment SOCIAL [place] Exposure to SARS-CoV -2 (event) Unable to assess [place] Start: 08-13-2020 End: 02-18-2022 Tobacco use and exposure Never used [facility] [place] Start: 12-26-2020 End: 02-18-2022 History SDOH Financial [employer] Work Phone: Start: 12-26-2020 End: 02-18-2022 History SDOH Food Worry 1 [employer] Work Phone: Start: 12-26-2020 End: 02-18-2022 History SDOH Transport Med 2 [employer] Work Phone: Tobacco smoking stat [facility] Tobacco smoking consumption unknown [facility] Start: 09-01-2023 End: 07-13-2024 Alcoholic beverage intake [employer] Has the [employer], [employer], or water [employer] threatened to shut off services in your home in past 12Mo No [employer] How hard is it for y ou to pay for the very basics like food, housing, medical care, and heating Not hard at all [employer] (I/We) worried wheth er (my/our) food would run out before (I/we) got money to buy more. Never true [employer] History of Present illness Narrative 06-27-2024 TANI Louise - 06/27/2024 11:30 AM EST Note Date & Type Note Facility 06-27-2024 History of Presen t illness Narrative Images from the original note were not included. Reason for Appointment: EMG Patient: Emily Perez : 1985 [facility] Computer: [employer] Referring Physician: Brii Mendoza APRN-MULTIPLE EFFECT EVAPORATOR OPERATOR EMG: RAY cloak room attendant: Armand Benjamin RT(R) Office Location: [place] Reason for EMG: c/o numbness/tingling in left arm/hand especially in 1st digit, neck pain. No hx of DM. Not on blood thinners. Comments: Procedure was explained to the patient who expressed understanding. Patient appeared to have tolerated the test well despite some discomfort due to the nature of the test. documented in this encounter [facility] Evaluation note Note Date & Type Note Facility Evaluation note Diagnosis Routine Papanicolaou smear Screening for malignant neoplasm of the cervix documented in this encounter [employer] Phone: Evaluation note Note Date & Type Note Facility Evaluation note Diagnosis Visit for screening mammogram Other screening mammogram documented in this encounter [facility] [employer] Phone: Evaluation note Note Date & Type Note Facility Evaluation note Diagnosis Left carpal tunnel syndrome- Primary Carpal tunnel syndrome Numbness and tingling Disturbance of skin sensation documented in this encounter [facility] Evaluation note Note Date & Type Note Facility Evaluation note Diagnosis Encounter for gynecological examination documented in this encounter [facility] [employer] Evaluation note Note Date & Type Note Facility Evaluation note Diagnosis Neck pain Cervicalgia Bilateral hand numbness Disturbance of skin sensation documented in this encounter [facility] [employer] Evaluation note Note Date & Type Note Facility Evaluation note Diagnosis Breast cancer screening by mammogram documented in this encounter [facility] [employer] Reason for visit Narrative Other Medical (Routine) - Closed Note Date & Type Note Facility Reason for visit Narrative Specialty Diagnoses / Procedures Referred By Contac t Referred To Contact Neurology Diagnoses Anesthesia of skin Paresthesia of skin Procedures AZ NEEDLE EMG EA EXTREMTY W/PARASPINL AREA COMPLETE [place] NERVE CONDUCTION STUDIES 9-10 STUDIES Brii Mendoza MD [address] [facility] [address] [place] [address] Phone: tel: fax: Rafita Morin MD [address] [place] [address] Phone: tel: fax: Referral ID Status Reason Start Date Expiration Date V isits Requested Visits Authorized [id number] Closed Perform Procedure 06/22/2024 12/19/2024 1 1 [facility] History of Present Illness * Colton Hugo, PT - 02/17/2019 5:18 PM EDT [facility] Outpatient Physical Therapy Daily Note Patient: Emily Perez : 1965 [facility] #: [id number] Referring Practitioner: Guy Lorenzana MD Referral Date : 01/31/19 Date: 02/17/2019 Diagnosis: Benign positional vertigo, left (H81.12), Neck pain on R side (M54.2) Treatment Diagnosis: vertigo, neck pain Onset Date: 01/25/19 PT Insurance Information: Funding [employer] Total # of Visits Approved: 12 Per Physician Order Total # of Visits to Date: 5 No Show: 0 Canceled Appointment: 0 Pre-Treatment Pain: 5-6/10 Subjective: The patient reports R posterior shoulder pain coming into therapy today due to work activities of lifting and reaching. Pt reports 5-6/10 pain coming into therapy. She denies dizziness and neck pain today. Exercises: Exercise 3: Pulleys x3 min Exercise 4: Cane extension, cane ER x15 ea Exercise 5: BTB rows/LAE 2x12 ea Exercise 7: Posterior capsule shoulder stretch 2x30 seconds, pec stretch 2x30 seconds Exercise 9: IR/ER blue tband - 12x2 Exercise 11: ball up wall x30 seconds Exercise 13: sm push-ups 2x10 Exercise 14: Lat pulldown 6 pl 2x10 Modalities: Cryotherapy (Minutes\Location): x15 min to R shoulder Ultrasound: 1.2 W/Cm2, 1.0 mhz, x8 min E-stim (parameters): IFC+CP x15min for shoulder pain Assessment Assessment: Pt with R posterior shoulder pain coming into therapy. Used ultrasound, exercise and finished tx with E-Stim and ice to decrease pain. HEP updated. Patient Education Patient Education: Progression of exercises Pt verbalized/demonstrated good understanding: [x] Yes [] No, pt required further clarification. Post Treatment Pain: 2-3/10 Plan Times per week: 2 Plan weeks: 6 Goals (Total # of Visits to Date: 5) Short Term Goals - Time Frame for Short term goals: 3 weeks Short term goal 1: Pt will initiate HEP -MET [x]Met []Partially met []Not met Short term goal 2: Pt will be reassessed for BPV and treated as needed to address dizziness -MET [x]Met []Partially met []Not met []Met []Partially met []Not met []Met []Partially met []Not met Correction Goals - Time Frame for terminal system operator goals : 6 weeks USP goal 1: Pt will be independent and compliant with HEP. []Met []Partially met []Not met USP goal 2: Pt will report 75% improvement in dizziness to improve QOL. []Met []Partially met []Not met USP goal 3: Pt will demonstrate CROM WNL in all planes with min/no pain to improve functionalmobility. []Met []Partially met []Not met terminal system operator goal 4: Pt will report 50% improvement in neck pain for ease of work- related tasks. []Met []Partially met []Not met []Met []Partially met []Not met Minutes Tracking: Time In: 1615 Time Out: 1712 Minutes: 57 Colton Hugo PT, DPT Date: 02/17/2019 documented in this encounter* Julienne Baldwin - 02/24/2019 4:21 PM EDT [facility] Inpatient/Observation/Outpatient Rehabilitation Date: 02/24/2019 Patient Name: Emily Perez [] Inpatient Acute/Observation [x] Outpatient : 1965 [x] Pt cancelled due to: [x] Other: Patient is having car issues (daughter's car) Julienne Baldwin Date: 02/24/2019 documented in this encounter* Devika Mak RN - 12/16/2019 1:42 PM EDT Discharge instructions reviewed with patient. Handout on post op hyst given. No questions at this time. Patient d/c'd off unit via w/c with daughter to home. Belongings in hand. No issues noted. * Devika Mak RN - 12/16/2019 1:15 PM EDT Patient made aware that Hgb is 7.8 and she is ready for d/c. * Devika Mak RN - 12/16/2019 8:[address] Hernadez rounding on patient. He is okay with d/c this afternoon after PRBCs and if recheck afterwards is above 7. Patient made aware of this by policy writer typist and she is in agreement. * Hemal Gutierrez, RD, LD - 12/15/2019 10:04 AM EDT Nutrition Assessment Type and Reason for Visit: Initial, Patient Education Nutrition Recommendations: Iron rich diet Nutrition Assessment: Food and nutrition related knowledge deficit r/t alteration in GI status, AEBanemia pre-op (with history of low iron). Discussed and provided information on iron in diet. Advised that Tumeric may bind iron and create deficiency as well (takes at home). Expect PO to improve post op to normal levels. Has some throat tenderness r/t intubation. Malnutrition Assessment: Malnutrition Status: No malnutrition Context: Acute illness or injury Findings of the 6 clinical characteristics of malnutrition (Minimum of 2 out of 6 clinical characteristics is required to make the diagnosis of moderate or severe Protein Calorie Malnutrition based on AND/ASPEN Guidelines): 1. Energy Intake-Less than or equal to 50% of estimated energy requirement, (just post op) 2. Weight Loss-No significant weight loss, 3. Fat Loss-No significant subcutaneous fat loss, 4. Muscle Loss-No significant muscle mass loss, 5. Fluid Accumulation-Mild fluid accumulation, Extremities 6. Auto Claims Adjuster Strength-Not measured Nutrition Risk Level: Low, Moderate Nutrition Diagnosis: Problem: Food and nutrition-related knowledge deficit Etiology: related to Alteration in GI function ? Signs and symptoms: as evidenced by Lab values(anemia) Objective Information: Nutrition-Focused Physical Findings: no malnutrition indices Wound Type: None Current Nutrition Therapies: Oral Diet Orders: General Oral Diet intake: 26-50% Anthropometric Measures: Ht: 5' 2 (157.5 cm) Current Body Wt: 218 lb 1.6 oz (98.9 kg) Admission Body Wt: 215 lb (97.5 kg) Usual Body Wt: 215 lb (97.5 kg) % Weight Change: , none [place] Body Wt: 110 lb (49.9 kg), % [place] Body 198% BMI Classification: BMI 35.0 - 39.9 Obese Class II Lab Results Component Value Date NA 142 09/04/2018 K 5.1 09/04/2018 CL 107 09/04/2018 CO2 25 09/04/2018 BUN 15 09/04/2018 CREATININE 1.0 09/04/2018 GLUCOSE 95 09/04/2018 CALCIUM 9.4 09/04/2018 LABGLOM >60 07/31/2012 GFRAA >60 07/31/2012 No results found for: IRON, TIBC, FERRITIN Nutrition Interventions: Continue current diet Continued Inpatient Monitoring, Coordination of Care, Education Initiated Nutrition Evaluation: Evaluation: Goals set Goals: PO >75% with high iron choices w/vit C use Monitoring: Weight, I&O, Pertinent Labs, Meal Intake Contact Number: [phone] * Linh Hernadez MD - 12/15/2019 9:26 AM EDT Department of Gynecology Attending Progress Note SUBJECTIVE: The patient is doing well postoperatively. Her biggest complaint is pain in her lower throat and upper chest she believes from the intubation. She is ambulatory has some appetite is voiding well has not passed flatus yet OBJECTIVE: Physical Exam VITALS: BP 123/63 Pulse 78 Temp 97.5 F (36.4 C) (Temporal) Resp 16 Ht 5' 2 (1.575 m) Wt 218 lb 1.6 oz (98.9 kg) LMP 11/16/2019 SpO2 100% BMI 39.89 kg/m TEMPERATURE: Current - Temp: 97.5 F (36.4 C); Max - Temp Av.7 F (35.9 C) Min: 96.3 F (35.7 C) Max: 98.6 F (37 C) 24HR BLOOD PRESSURE RANGE: Systolic (24hrs), Av , Min:101 , Max:134 ; Diastolic (24hrs), Av, Min:46, Max:88 24HR INTAKE/OUTPUT: Intake/Output Summary (Last 24 hours) at 12/15/2019 0926 Last data filed at 12/15/2019 0842 Gross per 24 hour Intake 5266.27 ml Output 2600 ml Net 2666.27 ml URINARY CATHETER OUTPUT (Foreman): DRAIN/TUBE OUTPUT: CONSTITUTIONAL: awake, alert, cooperative, no apparent distress, and appears stated age LUNGS: No increased work of breathing, good air exchange, clear to auscultation bilaterally, no crackles or wheezing CARDIOVASCULAR: Normal apical impulse, regular rate and rhythm, normal S1 and S2, no S3 or S4, and no murmur noted ABDOMEN: No scars, normal bowel sounds, soft, non-distended, non-tender, no masses palpated, no hepatosplenomegally GENITAL/URINARY: No vaginal bleeding DATA: CBC: Lab Results Component Value Date WBC 13.6 12/15/2019 RBC 3.53 12/15/2019 HGB 7.2 12/15/2019 HCT 25.2 12/15/2019 MCV 71.4 12/15/2019 MCH 20.4 12/15/2019 MCHC 28.6 12/15/2019 RDW 16.9 12/15/2019 PLT 383 12/15/2019 MPV 9.3 12/15/2019 CBC with Differential: Lab Results Component Value Date WBC 13.6 12/15/2019 RBC 3.53 12/15/2019 HGB 7.2 12/15/2019 HCT 25.2 12/15/2019 PLT 383 12/15/2019 MCV 71.4 12/15/2019 MCH 20.4 12/15/2019 MCHC 28.6 12/15/2019 RDW 16.9 12/15/2019 LYMPHOPCT 14 12/15/2019 MONOPCT 6 12/15/2019 BASOPCT 0 12/15/2019 MONOSABS 0.82 12/15/2019 LYMPHSABS 1.90 12/15/2019 EOSABS 0.00 12/15/2019 BASOSABS 0.00 12/15/2019 DIFFTYPE NOT REPORTED 12/15/2019 WBC: Lab Results Component Value Date WBC 13.6 12/15/2019 Platelets: Lab Results Component Value Date PLT 383 12/15/2019 Hemoglobin/Hematocrit: Lab Results Component Value Date HGB 7.2 12/15/2019 HCT 25.2 12/15/2019 CMP: Lab Results Component Value Date NA 142 09/04/2018 K 5.1 09/04/2018 CL 107 09/04/2018 CO2 25 09/04/2018 BUN 15 09/04/2018 CREATININE 1.0 09/04/2018 GFRAA >60 07/31/2012 LABGLOM >60 07/31/2012 GLUCOSE 95 09/04/2018 CALCIUM 9.4 09/04/2018 BMP: Lab Results Component Value Date NA 142 09/04/2018 K 5.1 09/04/2018 CL 107 09/04/2018 CO2 25 09/04/2018 BUN 15 09/04/2018 CREATININE 1.0 09/04/2018 CALCIUM 9.4 09/04/2018 GFRAA >60 07/31/2012 LABGLOM >60 07/31/2012 GLUCOSE 95 09/04/2018 ASSESSMENT AND PLAN: Patient does have anemia is in the expected range as she had anemia preoperatively as well. She denies feeling dizzy or lightheaded or unusually fatigued. Will continue observation with probable discharge tomorrow Active Problems: Abdominal adhesions Plan: FELICITA III with severe dysplasia Plan: S/P SHUN (total abdominal hysterectomy) Plan: * Mary Chatman RN - 12/15/2019 7:59 AM EDT Shift assessment completed at this time. Patient states her pain is a 5/10, which she is given 1 Percocet at this time for as her GRAPHIC USER INTERFACE DESIGNER pump has been turned off. She has no other needs/requests at thistime. * Chaya Barros LSW - 12/15/2019 7:46 AM EDT Discussed discharge plans with the patient. Patient is a 54 year old female here with Total abdominal hysterectomy and bilateral salpingo-oophorectomy with extensive lysis of adhesions. She is alert and oriented. Patient is and lives with her sister and her daughter. She uses no medical equipment. The patient's sister does most of the cooking and the cleaning. She is independent with her ADL's. Patient manages her own medication and drives. Her PCP is Dr. Guy Lorenzana. She has medical insurance that helps with medication costs. The discharge plan is home with no services at this time. She does not have advance directives and is not interested at this time. WHITE LEAD FILTERER to monitor and assist with any needs or concerns they arise. HELEN German * Mily [place] RN - 12/14/2019 8:45 PM EDT Foreman catheter removed at this time. No complications; pt tolerated well. Pt ambulates to bathroom at this time. Tolerated well. Now resting in bed with eyes closed and call light and belongings within reach. * Mily Sevilla RN - 12/14/2019 8:44 PM EDT 300mL of clear, yellow, malodorous urine emptied from foreman catheter at this time. * Katlin Montanez RN - 12/14/2019 3:15 PM EDT 1118 Report given to Sally Urena RN * Roderick Haddad RCP - 12/14/2019 1:24 PM EDT Pt too drowsy to attempt incentive spirometer education. Will try again later * Micheline Jeffrey RN - 12/14/2019 12:48 PM EDT Called respiratory to assist with setting up end tidal Co2 monitor. * Micheline Jeffrey RN - 12/14/2019 12:30 PM EDT Pt arrived on unit from OR to room 302 post op hysterectomy. Pt resting quietly in bed with eyes shut respirations even and unlabored while on room air. When pt aroused from sleep rates pain 02/12. Pteducated on GRAPHIC USER INTERFACE DESIGNER. Pt denies other needs at this time. Call light in reach. Will continue to monitor. * Katlin Montanez RN - 12/14/2019 8:30 AM EDT 0830 [id number] * Jennifer Diaz RN - 12/14/2019 6:51 AM EDT Anesthesia paged to let them know the patient was ready to be seen in pre-op. documented in this encounter* Kasandra Mathis RN - 12/09/2019 10:30 AM EDT [facility] Preadmission Testing Name: Emily Perez : 1965 Patient (home) [phone] (work) Procedure SHUN Date of Procedure: 12/14/19 Surgeon: Linh Hernadez MD Ht: 5' 2 (157.5 cm) Wt: 215 lb 4.8 oz (97.7 kg) Wt method: Stated Allergies: No Known Allergies Peanut allergy: No Latex Allergy Screening Tool Have you ever had a reaction to or been told by a physician that you have an allergy to latex or natural rubber?: No Vitals: 12/09/19 1129 BP: 131/85 Pulse: 90 Resp: 20 Temp: 97.5 F (36.4 C) SpO2: 98% Patient's last menstrual period was 11/16/2019. Do you take blood thinners? [x] Yes [] No Instructed to stop blood thinners prior to procedure? [x] Yes [] No [] N/A Do you have sleep apnea? [] Yes [x] No Instructed to bring CPAP machine? [] Yes [] No [x] N/A Do you have acid reflux ? [x] Yes [] No Do you have hiatal hernia? [] Yes [x] No Do you ever experience motion sickness? [] Yes [x] No Have you had a respiratory infection or sore throat in last 4 weeks before surgery? [] Yes [x] No Do you have poorly controlled asthma or COPD? [] Yes [x] No Do you have a history of angina in the last month or symptomatic arrhythmia? [] Yes [x] No Do you have significant central nervous system disease? [] Yes [x] No Have you had an EKG, labs, or chest xray in last 12 months? If yes provide copies to anesthesia [] Yes [x] No [x] Lab [x] EKG [] CXR Have you had a stress test? [] Yes [x] No When/where: Was it normal? [] Yes [] No Do you or your family have a history of Malignant Hyperthermia? [] Yes [x] No PAT Call/Visit Questions Person Interviewed: PATIENT Surgery Time Verified: Yes Surgery Location Verified: Yes Patient Language: WELSH Medical History Reviewed: Yes NPO Status Reinforced: Yes Ride and Caregiver Arranged: Yes Ride Caregiver Provider: DAUGHTER-NAMITA Patient Knows to Bring Current Medications: Yes Pre-AdmissionTesting Checklist Patient has been to this health system before?: Yes Does patient refuse blood?: No Healthcare Directive: No, patient does not have an advance directive for healthcare treatment Social Services Manager needed: No Patient can read and write?: Yes [id number]: Does the patient want to have any new prescriptions delivered to bedside prior to discharge?: No History given by: Patient Providing self care at home?: Yes Discharge transport (for same day patients): Family Patient instructed on the pre-operative, intra-operative, and post-operative process? Yes Medication instructions reviewed with patient? Yes Pre operative instruction sheet reviewed and given to patient in PAT? Yes * Kasandra Mathis RN - 12/09/2019 10:30 AM EDT Patient instructed on the pre-operative, intra-operative, and post-operative process. Patient instructed on NPO status. Medication instructions and Pre operative instruction sheet reviewed and given to patient in PAT. documented in this encounter Advance Directives Documents on File Type Date Recorded Patient Pediatrics Hospitalist Expl anation Advance Directives and Living Will Power of Supervising Law Enforcement Analyst Documents on File Type Date Recorded Patient Pediatrics Hospitalist Expl anation Advance Directives and Living Will Power of Supervising Law Enforcement Analyst Latest Code Status on File Code Status Date Activated Date Inactivated Comments Full Code 12/14/2019 12:35 PM Full Code 12/14/2019 6:10 AM 12/14/2019 12:34 PM Documents on File Type Date Recorded Patient Pediatrics Hospitalist Expl anation ACP-Advance Directive ACP-Power of Supervising Law Enforcement Analyst Latest Code Status on File Code Status Date Activated Date Inactivated Comments Full Code 12/14/2019 12:35 PM 12/16/2019 3:55 PM Full Code 12/14/2019 6:10 AM 12/14/2019 12:34 PM Documents on File Type Date Recorded Patient Pediatrics Hospitalist Expl anation ACP-Advance Directive ACP-Power of Supervising Law Enforcement Analyst Latest Code Status on File Code Status Date Activated Date Inactivated Comments Full Code 12/14/2019 12:35 PM 12/16/2019 3:55 PM Date Activated Date Inactivated Comments 12/14/2019 12:35 PM 12/16/2019 3:55 PM Date Activated Date Inactivated Comments 12/14/2019 6:10 AM 12/14/2019 12:34 PM Latest Code Status on File Code Status Date Activated Date Inactivated Comments Full Code 12/14/2019 12:35 PM 12/16/2019 3:55 PM Code Status History Code Status Date Activated Date Inactivated Comments Full Code 12/14/2019 6:10 AM 12/14/2019 12:34 PM Date Activated Date Inactivated Comments 12/14/2019 12:35 PM 12/16/2019 3:55 PM Date Activated Date Inactivated Comments 12/14/2019 6:10 AM 12/14/2019 12:34 PM Summary Purpose Family History No Family History Records FoundNo Family History Records FoundNo Family History Records Found Reason for Referral Status Reason Specialty Diagnoses / Procedures Referred By Contact Referred To Contact Pending Review Radiology Diagnoses Screening for breast cancer Procedures ILSA DIGITAL SCREEN W CAD BILATERAL HC MAMMO SCREENING INCL CAD IF PERF Linh Hernadez MD [address] [place] [address] Status Reason Specialty Diagnoses / Procedures Referred By Contact Referred To Contact Open Vascular Lab Diagnoses Acute pain of right lower extremity Procedures VL DUP LOWER EXTREMITY VENOUS RIGHT Guy Lorenzana MD [address], [place] [address] [facility] [address] [place] [address] Specialty Diagnoses / Procedures Referred By Contac t Referred To Contact Radiology Diagnoses Breast cancer screening by mammogram Procedures LISA ZULEIKA DIGITAL SCREEN BILATERAL Brii Mendoza, MANAGER INSTRUMENTATION - MULTIPLE EFFECT EVAPORATOR OPERATOR [address] [place] [address] Referral ID Status Reason Start Date Expiration Date V isits Requested Visits Authorized [id number] Pending Review 02/09/2024 02/08/2025 1 1 Assessments Diagnosis Screening for breast cancer Breast screening, unspecified Diagnosis Encounter for pre-operative laboratory testing Preoperative examination, unspecified Diagnosis S/P SHUN (total abdominal hysterectomy) Acquired absence of both cervix and uterus Abdominal adhesions Peritoneal adhesions (postoperative) (postinfection) 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 Good nutrition is important when healing from an illness, injury, or surgery. Follow any nutrition recommendations given to you during your hospital stay. ? If you were given an oral nutrition supplement while in the hospital, continue to take this supplement at home. You can take it with meals, in-between meals, and/or before bedtime. These supplements can be purchased at most local grocery stores, pharmacies, and chain [employer]stores. ? If you have any questions about your diet or nutrition, call the hospital and ask for the dietitian. General diet as tolerated * Attachments The following attachments cannot be sent through Care Everywhere. * Hysterectomy: Abdominal: Post-op (Romansh) documented in this encounter Additional Source Comments INFORMATION SOURCE (unrecogn ized section and content) DATE CREATED AUTHOR 05/18/2019 [facility] DATE CREATED AUTHOR AUTHOR'S ORGANIZ ATION 06/29/2024 [facility] DATE CREATED AUTHOR AUTHOR'S ORGANIZ ATION 07/25/2024 Ami Trinidad pitbrittanie Reason for Visit (unrecogniz ed section and content) Status Reason Specialty Diagnoses / Procedures Referred By Contact Referred To Contact Pending Review Radiology Diagnoses Screening for breast cancer Procedures LISA DIGITAL SCREEN W CAD BILATERAL HC MAMMO SCREENING INCL CAD IF PERF Linh Hernadez MD [address] [place] [address] Status Reason Specialty Diagnoses / Procedures Referre d By Contact Referred To Contact Diagnoses Carcinoma in situ of cervix, unspecified CIN3, LLQ PAIN Procedures AZ TOTAL ABDOM HYSTERECTOMY HYSTERECTOMY ABDOMINAL TOTAL-BSO (POSSIBLE APPENDECTOMY Linh Hernadez MD [address] [place] [address] [facility] Status Reason Specialty Diagnoses / Procedures Referred By Contact Referred To Contact Open [facility] Lab Diagnoses Acute pain of right lower extremity Procedures VL DUP LOWER EXTREMITY VENOUS RIGHT Guy Lorenzana MD [address], [facility] [address] [place] [id number] [facility] [address] [place] [address] Specialty Diagnoses / Procedures Referred By Contac t Referred To Contact Radiology Diagnoses Visit for screening mammogram Procedures LISA ZULEIKA DIGITAL SCREEN BILATERAL LISA DIGITAL SCREEN W OR WO CAD BILATERAL Guy Lorenzana MD [address], [place] [address] Referral ID Status Reason Start Date Expiration Date Visits Re quested Visits Authorized [id number] Closed 02/18/2022 02/18/2023 1 1 Specialty Diagnoses / Procedures Referred By Contac t Referred To Contact Radiology Diagnoses Breast cancer screening by mammogram Procedures LISA ZULEIKA DIGITAL SCREEN BILATERAL Brii Mendoza, MANAGER INSTRUMENTATION - MULTIPLE EFFECT EVAPORATOR OPERATOR [address] [place] [address] Referral ID Status Reason Start Date Expiration Date V isits Requested Visits Authorized [id number] Pending Review 02/09/2024 02/08/2025 1 1 Care Teams (unrecognized sec tion and content) Perforator Operator Oil Well Relationship Specialty Start Date End Date Guy Lorenzana MD [address], [address] [place] [id number] PCP - General Internal Medicine 08/28/14 Perforator Operator Oil Well Relationship Specialty Start Date End Date Guy Lorenzana MD [address] [place] [address], [address] [place], [place] [id number] PCP - General Internal Medicine 08/28/14 Perforator Operator Oil Well Relationship Specialty Start Date End Date Unallocated, Megan Orellana MD [address] [place] [address] PCP - General Family Medicine 06/22/24 Brii Mendoza MD [address] [place] [address] [address] [place] [address] Referring Physician Family Medicine 06/22/24 Perforator Operator Oil Well Relationship Specialty Start Date End Date Unallocated, Megan Orellana MD [address] [place] [address] PCP - General Family Medicine 06/22/24 Brii Mendoza MD [address] [place] [address] [address] [place] [address] Referring Physician Family Medicine 06/22/24 Perforator Operator Oil Well Relationship Specialty Start Date End Date Brii Mendoza, MANAGER INSTRUMENTATION - MULTIPLE EFFECT EVAPORATOR OPERATOR [address] [place] [address] [address] [place] [address] PCP - General Family Nurse Practitioner 02/09/24 Perforator Operator Oil Well Relationship Specialty Start Date End Date Brii Mendoza, MANAGER INSTRUMENTATION - MULTIPLE EFFECT EVAPORATOR OPERATOR [address] [place] [address] [address] [place] [address] PCP - General Family Nurse Practitioner 02/09/24 Perforator Operator Oil Well Relationship Specialty Start Date End Date Brii Mendoza, MANAGER INSTRUMENTATION - MULTIPLE EFFECT EVAPORATOR OPERATOR [address] [place] [address] [address] [place] [address] PCP - General Family Nurse Practitioner 02/09/24 FOR RECORDS PERTAINING TO PATIENTS WHO ARE OR HAVE BEEN ENROLLED IN A CHEMICAL DEPENDENCY/SUBSTANCEABUSE PROGRAM, SOME INFORMATION MAY BE OMITTED. This clinical summary was aggregated from multiple sources. Caution should be exercised in using it in the provision of clinical care. This summary normalizes information from multiple sources, and as a consequence, information in this document may materially change the coding, format and clinical context of patient data. In addition, data may be omitted in some cases. CLINICAL DECISIONS SHOULD BE BASED ON THE PRIMARY CLINICAL RECORDS. [facility]. provides no warranty or guarantee of the accuracy or completeness of information in this document.
--- NOTE | 2024-10-03 12:52 | PC.NURSE ---
right eye is reddended.
[2024-10-03] MEDS: 0.9 % SODIUM CHLORIDE 500 ML 50 ML IV (13:00)
[2024-10-03] MEDS: CEFAZOLIN SODIUM 2 GM/50 ML D5W PREMIX IV (13:18)
[2024-10-03] MEDS: LIDOCAINE HCL 1%-EPINEPHRINE 1:100,000 10 ML MDV 5 ML INJ (13:29)
[2024-10-03] MEDS: BUPIVACAINE HCL 0.5% PF 50 MG/10 ML VIAL 5 ML INJ (13:29)
[2024-10-03 13:53] VITALS: BP 122/72; PULSE 74; O2SAT 94
[2024-10-03 14:08] VITALS: BP 116/82; PULSE 86; O2SAT 94
--- NOTE | 2024-10-03 14:14 | PM.ORPRC ---
Procedure Note Date of procedure: 10/03/24 Pre-op diagnosis: Left carpal tunnel syndrome Post-op diagnosis: same as pre-op Procedure: Preoperative Diagnosis: Left carpal tunnel syndrome Postoperative Diagnosis: Same Procedure: Left endoscopic carpal tunnel release Surgeon: Jerome Anesthesia: Local with MAC Estimated blood loss:Minimal Tourniquet time: 3 Minutes at 225 mmHg Complications: None Indications for Surgery: The patient has had signs and symptoms of carpal tunnel syndrome that have failed conservative treatment. Options were discussed with the patient as well as risks and benefits and they have elected to proceed with the surgery. Operative procedure: Prior to surgery the patient received IV antibiotics. The operative extremity was marked preoperatively. After informed consent was obtained the patient was brought to the operating room where MAC anesthesia was administered. Preoperatively 5 mm 0.5% Marcaine plain with 5 mm 1% lidocaine with epinephrine were infiltrated in the operative sight. The arm was then prepped and draped in the usual sterile fashion after placement of a well padded tourniquet. The arm was elevated, exsanguinated, and the tourniquet was inflated. A 1 cm incision was then made in a preexisting distal wrist crease. Hemostasis was achieved with bipolar electrocautery. Blunt dissection was then carried down to the forearm fascia where a U-based flap was created. Proximally the fascia was incised for 2 cm under direct visualization. Attention was then turned to the endoscopic carpal tunnel release. The synovial elevator was used to clear the underside of the transverse carpal ligament of soft tissue. Sequential dilators were then placed. The endoscopic carpal tunnel released instrument was then placed. The transverse fibers were then identified and release from distal to proximal. The ligament was completely release. The tourniquet was deflated and hemostasis was achieved. The wound was irrigated and closed with a nylon suture. A sterile dressing was placed. The patient was brought to the recovery room. There were no preoperative or postoperative complications. Anesthesia: MAC and local Surgeon: Rafita Cano Estimated blood loss (mL): 1 Condition: stable Disposition: PACU
[2024-10-03 14:35] VITALS: BP 125/75; PULSE 66; O2SAT 95
== END 2024-10-03 14:35 | disposition home or self-care (01) ==
PROVIDERS: PCP Nurse Practitioner Women's Health; Visit Provider Orthopaedic Surgery
PROC: (CPT 1810; principal; 2024-10-03 13:40)
DX: G56.02 Carpal tunnel syndrome, left upper limb (principal); Z90.710 Acquired absence of both cervix and uterus; I10 Essential (primary) hypertension; K21.9 Gastro-esophageal reflux disease without esophagitis; K76.0 Fatty (change of) liver, not elsewhere classified
CPT/HCPCS: 29848; 36415; J0665; J0690; J2250; J2704; J3010